=== PATIENT | female | born 1945 | race Caucasian/White ===

== ENCOUNTER 2017-03-23 16:36 | Outpatient (CLI) | payer OTHER ==
--- NOTE | 2017-03-24 11:13 | Ultrasound Report ---
RENAL ULTRASOUND: 03/23/2017 CLINICAL INDICATION: Chronic renal insufficiency. TECHNIQUE: Real-time scanning was performed with advertising account representative static images obtained. FINDINGS: The right kidney measures 11.4 x 8.3 x 5.3 cm, and the left kidney measures 10.7 x 7.2 x 5 .6 cm. Small cortical cysts are present. No solid renal mass, hydronephrosis, or perinephric collec tion is seen. Prevoid, the urinary bladder measures 8.1 x 5.6 x 5.4 cm, yielding a prevoid volume of 128 mL. Bilat eral ureteral jets are present. Postvoid residual is 5 mL. No focal bladder lesion is seen. IMPRESSION: SMALL CORTICAL CYSTS. NO HYDRONEPHROSIS. NO SIGNIFICANT POSTVOID RESIDUAL. JOB #: [id number] EXT JOB #:[id number]
== END 2017-03-23 16:37 | disposition home or self-care (01) ==
LOC: DI 16:36
PROVIDERS: ATTEND Physician Assistant Medical
DX: Q61.02 Congenital multiple renal cysts (principal)
CPT/HCPCS: 76770

== ENCOUNTER 2018-01-28 08:00 | Outpatient (CLI) | payer OTHER ==
[2018-01-28 13:51] LABS: CALCIUM 9.5 mg/dL (8.5-10.3); CREATININE 1.3 mg/dL (0.4-1.0)
[2018-01-28 14:21] LABS: HB2 TOTAL 13.9 g/dL; HEMOGLOBIN A1C 0.6 g/dL; HEMOGLOBIN A1C % 6.1 % (4.6-6.2)
== END 2018-01-28 08:01 | disposition home or self-care (01) ==
LOC: LAB.WCP 08:00
PROVIDERS: ATTEND Family Medicine
DX: E11.40 Type 2 diabetes mellitus with diabetic neuropathy, unspecified (principal)
CPT/HCPCS: 36415; 80048; 82043; 83036

== ENCOUNTER 2018-03-16 09:15 | Outpatient (CLI) | payer OTHER ==
--- NOTE | 2018-03-17 13:52 | Mammography Report ---
Procedure Date: 03/16/2018 Accession Number: [id number] / [id number] Procedure: MGN - Screening Mammo Dig Bilat CPT Code: FULL RESULT: EXAM: Screening Mammo Dig Bilat DATE: 03/16/2018 9:34 AM CLINICAL HISTORY: Routine screening TECHNIQUE: Bilateral CC and MLO views were obtained. COMPARISON: 04/14/2016, 04/05/2015, 03/20/2014, 6 x 13, 03/11/2012, 02/04/2010 FINDINGS: There are scattered fibroglandular densities. There is been no significant interval change. No suspicious masses, clustered microcalcifications, skin thickening or regions of architectural distortion are identified. IMPRESSION: Negative. RECOMMENDATION: Routine annual screening unless otherwise clinically indicated. BIRADS CATEGORY 1: Negative STANDARD QUALIFYING STATEMENTS: 1. This examination was reviewed with the aid of Computer-Aided Detection (CAD). 2. A negative or benign imaging report should not delay biopsy if clinically suspicious findings are present. Consider surgical consultation if warrented. More than 5% of cancers are not identified by imaging. 3. Dense breasts may obscure an underlying neoplasm.
== END 2018-03-16 09:16 | disposition home or self-care (01) ==
LOC: DI.N 09:15
PROVIDERS: ATTEND Family Medicine
DX: Z12.31 Encounter for screening mammogram for malignant neoplasm of breast (principal)
CPT/HCPCS: 77067

== ENCOUNTER 2018-07-14 09:25 | Outpatient (CLI) | payer OTHER ==
[2018-07-14 12:47] LABS: HB2 TOTAL 14.2 g/dL; HEMOGLOBIN A1C 0.56 g/dL; HEMOGLOBIN A1C % 5.8 % (4.6-6.2)
== END 2018-07-14 09:26 | disposition home or self-care (01) ==
LOC: LAB.WCP 09:25
PROVIDERS: ATTEND Family Medicine
DX: E11.40 Type 2 diabetes mellitus with diabetic neuropathy, unspecified (principal)
CPT/HCPCS: 36415; 82043; 83036

== ENCOUNTER 2018-10-13 08:00 | Outpatient (CLI) | payer OTHER ==
[2018-10-13 12:55] LABS: CALCIUM 9.7 mg/dL (8.5-10.3); CREATININE 1.4 mg/dL (0.4-1.0)
[2018-10-13 13:16] LABS: HB2 TOTAL 13.5 g/dL; HEMOGLOBIN A1C 0.51 g/dL; HEMOGLOBIN A1C % 5.6 % (4.6-6.2)
== END 2018-10-13 23:59 | disposition home or self-care (01) ==
LOC: LAB.WCP 08:00
PROVIDERS: ATTEND Family Medicine
DX: E11.40 Type 2 diabetes mellitus with diabetic neuropathy, unspecified (principal)
CPT/HCPCS: 36415; 80048; 82043; 83036

== ENCOUNTER 2018-12-08 10:21 | Outpatient (CLI) | payer OTHER ==
[2018-12-08 12:50] LABS: BASOPHILS % (AUTO) 0.5 %; EOSINOPHILS # (AUTO) 0.1 10^3/uL (0.0-0.7); HGB - HEMOGLOBIN 12.6 g/dL (12.0-16.0); LYMPHOCYTES # (AUTO) 0.7 10^3/uL (1.5-3.5); LYMPHOCYTES % (AUTO) 13.8 %; MEAN CORPUSCULAR HEMOGLOBIN 30.7 pg (27.0-31.0); MEAN CORPUSCULAR HGB CONC 34.4 g/dL (32.0-36.0); MEAN CORPUSCULAR VOLUME 89.5 fL (81.0-99.0); MEAN PLATELET VOLUME 8.8 fL (7.9-10.8); MONOCYTES # (AUTO) 0.5 10^3/uL (0.0-1.0); MONOCYTES % (AUTO) 9.6 %; NEUTROPHILS % (AUTO) 74.1 %; PLT - PLATELET COUNT 157 10^3/uL (130-450); RED BLOOD COUNT 4.09 10^6/uL (4.20-5.40); RED CELL DISTRIBUTION WIDTH 12.9 % (12.0-15.0); WHITE BLOOD COUNT 5.4 x10^3/uL (4.8-10.8)
[2018-12-08 13:29] LABS: ALBUMIN 4.1 g/dL (3.2-5.5); ALBUMIN/GLOBULIN RATIO 1.4 (1.0-2.2); BILIRUBIN,TOTAL 0.8 mg/dL (0.2-1.0); CALCIUM 9.1 mg/dL (8.5-10.3); CREATININE 1.4 mg/dL (0.4-1.0); TOTAL PROTEIN 7.1 g/dL (6.7-8.2)
== END 2018-12-08 23:59 | disposition home or self-care (01) ==
LOC: LAB.WCP 10:21
PROVIDERS: ATTEND Family Medicine
DX: N18.3 Chronic kidney disease, stage 3 (moderate) (principal)
CPT/HCPCS: 36415; 80053; 85025

== ENCOUNTER 2019-01-02 09:31 | Outpatient (CLI) | payer OTHER | END 2019-01-02 09:32 | disposition home or self-care (01) | LOC: NS 09:31 | PROVIDERS: ATTEND Family Medicine | DX: Z71.3 Dietary counseling and surveillance (principal); E11.22 Type 2 diabetes mellitus with diabetic chronic kidney disease; N18.9 Chronic kidney disease, unspecified | CPT/HCPCS: 97802 ==

== ENCOUNTER 2019-02-02 09:34 | Outpatient (CLI) | payer OTHER ==
[2019-02-02 13:24] LABS: HB2 TOTAL 13.1 g/dL; HEMOGLOBIN A1C 0.54 g/dL; HEMOGLOBIN A1C % 5.9 % (4.6-6.2)
== END 2019-02-02 09:35 | disposition home or self-care (01) ==
LOC: LAB.WCP 09:34
PROVIDERS: ATTEND Family Medicine
DX: E11.9 Type 2 diabetes mellitus without complications (principal)
CPT/HCPCS: 36415; 82607; 83036; 84100

== ENCOUNTER 2019-02-13 10:22 | Outpatient (CLI) | payer OTHER | END 2019-02-13 10:23 | disposition home or self-care (01) | LOC: NS 10:22 | PROVIDERS: ATTEND Family Medicine | DX: Z71.3 Dietary counseling and surveillance (principal); E11.22 Type 2 diabetes mellitus with diabetic chronic kidney disease; N18.3 Chronic kidney disease, stage 3 (moderate) | CPT/HCPCS: 97803 ==

== ENCOUNTER 2019-03-13 09:24 | Outpatient (CLI) | payer OTHER ==
--- NOTE | 2019-03-13 10:37 | XRAY Report ---
Reason: HAND PAIN,LEFT Procedure Date: 03/13/2019 Accession Number: [id number] / [id number] Procedure: WCP - Hand 2 View LT CPT Code: FULL RESULT: EXAM: LEFT HAND RADIOGRAPHY EXAM DATE: 03/13/2019 09:37 AM. CLINICAL HISTORY: Hand pain, left. COMPARISON: None. TECHNIQUE: 2 views. FINDINGS: Bones: Normal. No fractures or bone lesions. Joints: Minimal to mild degenerative changes at the first carpometacarpal articulation. There are 3 mm of ulnar negative variance. Soft Tissues: Normal. No soft tissue swelling. IMPRESSION: Ulnar negative variance. This can be associated with wrist pain. RADIA
== END 2019-03-13 09:25 | disposition home or self-care (01) ==
LOC: DI.WCP 09:24
PROVIDERS: ATTEND Family Medicine
DX: M79.642 Pain in left hand (principal)
CPT/HCPCS: 36415; 84550; 85027; 85651; 86038; 86140; 86200; 86430

== ENCOUNTER 2019-03-13 09:33 | Outpatient (CLI) | payer OTHER ==
[2019-03-13 15:49] LABS: URIC ACID 7.8 mg/dL (2.6-7.2)
[2019-03-13 15:54] LABS: HGB - HEMOGLOBIN 12.6 g/dL (12.0-16.0); MEAN CORPUSCULAR HEMOGLOBIN 30.5 pg (27.0-31.0); MEAN CORPUSCULAR HGB CONC 33.4 g/dL (32.0-36.0); MEAN CORPUSCULAR VOLUME 91.2 fL (81.0-99.0); MEAN PLATELET VOLUME 8.8 fL (7.9-10.8); RED BLOOD COUNT 4.13 10^6/uL (4.20-5.40); RED CELL DISTRIBUTION WIDTH 13.2 % (12.0-15.0); WHITE BLOOD COUNT 5.6 x10^3/uL (4.8-10.8)
[2019-03-13 18:02] LABS: CRP - C-REACTIVE PROTEIN < 1.0 mg/dL (0-1.0)
[2019-03-13 19:12] LABS: RHEUMATOID FACTOR NEGATIVE (Negative)
[2019-03-16 13:41] LABS: ANA SCREEN POSITIVE (NEGATIVE)
== END 2019-03-13 09:34 | disposition home or self-care (01) ==
LOC: LAB.WCP 09:33
PROVIDERS: ATTEND Family Medicine
DX: M79.642 Pain in left hand (principal)
CPT/HCPCS: 36415; 84550; 85027; 85651; 86038; 86140; 86200; 86430

== ENCOUNTER 2019-05-04 09:30 | Outpatient (CLI) | payer OTHER ==
[2019-05-04 12:24] LABS: CALCIUM 9.7 mg/dL (8.5-10.3); CREATININE 1.5 mg/dL (0.4-1.0)
[2019-05-04 12:36] LABS: HB2 TOTAL 12.9 g/dL; HEMOGLOBIN A1C 0.49 g/dL; HEMOGLOBIN A1C % 5.6 % (4.6-6.2)
[2019-05-04 13:08] LABS: CREATININE,URINE 26.9 mg/dL
[2019-05-04 13:12] LABS: MICROALBUMIN,URINE < 0.2 mg/dL (0-300.0)
== END 2019-05-04 23:59 | disposition home or self-care (01) ==
LOC: LAB.N 09:30
PROVIDERS: ATTEND Family Medicine
DX: E11.9 Type 2 diabetes mellitus without complications (principal)
CPT/HCPCS: 36415; 80048; 82043; 82570; 83036

== ENCOUNTER 2019-06-02 08:00 | Outpatient (CLI) | payer OTHER ==
[2019-06-02 19:10] LABS: ALBUMIN 4.5 g/dL (3.2-5.5); ALBUMIN/GLOBULIN RATIO 1.7 (1.0-2.2); BILIRUBIN,TOTAL 0.7 mg/dL (0.2-1.0); CALCIUM 9.6 mg/dL (8.5-10.3); CREATININE 1.3 mg/dL (0.4-1.0); TOTAL PROTEIN 7.1 g/dL (6.7-8.2); URIC ACID 7.6 mg/dL (2.6-7.2)
== END 2019-06-02 23:59 | disposition home or self-care (01) ==
LOC: LAB.N 08:00
PROVIDERS: ATTEND Family Medicine
DX: M10.9 Gout, unspecified (principal)
CPT/HCPCS: 36415; 80053; 84550

== ENCOUNTER 2019-08-17 11:20 | Outpatient (CLI) | payer OTHER ==
[2019-08-17 18:58] LABS: HB2 TOTAL 12.8 g/dL; HEMOGLOBIN A1C 0.47 g/dL; HEMOGLOBIN A1C % 5.5 % (4.6-6.2)
== END 2019-08-17 23:59 | disposition home or self-care (01) ==
LOC: LAB.N 11:20
PROVIDERS: ATTEND Family Medicine
DX: E11.9 Type 2 diabetes mellitus without complications (principal)
CPT/HCPCS: 36415; 83036

== ENCOUNTER 2022-03-16 09:10 | Outpatient (CLI) | payer OTHER ==
--- NOTE | 2022-03-16 11:24 | XRAY Report ---
PROCEDURE: Foot 3 View RT INDICATIONS: RIGHT FOOT SPRAIN TECHNIQUE: 3 views of the foot were acquired. COMPARISON: None FINDINGS: Bones: No fractures or dislocations. No suspicious bony lesions. Plantar calcaneal spur. Soft tissues: No tibiotalar joint effusion. Ossifications along the insertion of the Achilles tendon suggests remote trauma. IMPRESSION: Plantar calcaneal spur. Findings consistent with remote trauma at the insertion of the Achilles. No e vidence acute bony abnormality of the right foot. If clinical suspicion and/or symptoms persist, further assessment with repeat plain films or advanced imaging (e.g., CT, MRI, or bone scan) may be helpful for further assessment. Reviewed by: James Tirado MD on 03/16/2022 11:22 AM PDT Approved by: James Tirado MD on 03/16/2022 11:22 AM PDT Station ID: [id number]
== END 2022-03-16 09:11 | disposition home or self-care (01) ==
LOC: DI.N 09:10
PROVIDERS: ATTEND Internal Medicine
DX: S93.691A Other sprain of right foot, initial encounter (principal); M77.31 Calcaneal spur, right foot

== ENCOUNTER 2023-01-09 11:59 | Emergency (ER) | payer MEDICARE, OTHER ==
[2023-01-09 12:11] VITALS: BP 151/71
[2023-01-09] MEDS ORDERED: TETANUS/DIPHTHERIA/PERTUSSIS 0.5 ML SYRINGE IM ONE (12:24)
[2023-01-09] MEDS ORDERED: oxyCODONE 5 MG TABLET PO STA (12:24)
--- NOTE | 2023-01-09 12:26 | ED Physician Documentation ---
PD HPI LOWER EXT INJURY - Stated complaint Stated Complaint: GLF, RT LEG SWOLLEN - Chief complaint Chief Complaint: Trauma Ext - History obtained from History obtained from: Patient - Additional information Additional information: 77-year-old woman with unknown tetanus status was walking and slipped and hit her right leg on the edge of a concrete stair just prior to arrival and she has 2 scrapes there. She is able to walk and bear weight. No other injuries. Pain is moderate. 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 HEENT: Tonsil/Adenoidectomy - Present Medications Home Medications: Ambulatory Orders Medication Instructions Recorded Confirmed Aspirin [Aspir 81] 81 mg PO DAILY 07/12/14 03/09/16 Cinnamon Bark/Chromium Picolin 1 each PO BID 07/12/14 03/09/16 [Cinnamon Plus Chromium Capsule] Flaxseed Oil [Flaxseed] 1,400 mg PO DAILY 07/12/14 03/09/16 Glipizide [Glipizide Xl] 5 - 10 mg PO BIDWM 07/12/14 03/09/16 Glucosamine/MSM/Chondroitin A 1 each PO DAILY 07/12/14 03/09/16 [Uduzftntoug-Kdwijmkra-VIU Cplt] Lovastatin 40 mg PO QPM 07/12/14 03/09/16 Metformin HCl 850 mg PO TIDWM 07/12/14 03/09/16 Multivit-Min/FA/Lycopene/Lut 1 each PO DAILY 07/12/14 03/09/16 [Centrum Silver Tablet] lisinopriL [Lisinopril] 30 mg PO DAILY 07/12/14 03/09/16 Turmeric 1 tab PO DAILY 03/06/16 03/09/16 Ubidecarenone [Co Q-10] 75 mg PO DAILY 03/06/16 03/09/16 oxyCODONE [Roxicodone] 0.5 tab PO Q4-6H PRN #8 tablet 01/09/23 - Allergies Allergies/Adverse Reactions: Allergies Allergy/AdvReac Type Severity Reaction Status Date / Time clindamycin AdvReac Emesis Verified 07/12/14 09:11 codeine AdvReac Emesis Verified 07/12/14 09:11 onion [Onion] AdvReac Emesis Verified 07/12/14 09:11 Opioids - Morphine Analogues AdvReac Nausea Verified 01/09/23 12:11 rosiglitazone maleate * AdvReac Unknown Verified 03/09/16 06:53 [From Avandia] artificial sweeteners AdvReac Unknown Uncoded 03/09/16 06:53 - Social History Smoking Status: Never smoker PD ED PE NORMAL - Vitals Vital signs reviewed: Yes - General General: Alert and oriented X 3, No acute distress - Extremities Extremities: Other (There are 2 abrasions on the anterior right thomson with some underlying swelling. No pain out of proportion to exam. No pain with flexion or extension at the ankle. No knee or ankle tenderness.) - Neuro Neuro: Alert and oriented X 3, Normal speech - Psych Psych: Normal mood, Normal affect Results - Vitals Vitals: Vital Signs - 24 hr 01/09/23 12:07 Temperature 36.4 C L Heart Rate 77 Respiratory 16 Rate Blood Pressure 151/71 H O2 Saturation 100 Oxygen O2 Source Room air - Rads (name of study) Right tib-fib x-ray shows the swelling that is seen on exam but no fracture. Relevant Findings:: Final report received, EMP independent interpretation of test PD Medical Decision Making - ED course ED course: 77-year-old woman with right thomson abrasion and contusion with soft tissue hematoma. No evidence of compartment syndrome. X-ray negative. She walked well but did better with a walker here. Departure - Departure Disposition: 01 Home, Self Care Clinical Impression: Abrasion, right lower leg, initial encounter Contusion of right leg Qualifiers: Encounter type: initial encounter Qualified Code(s): S80.11XA - Contusion of right lower leg, initial encounter Condition: Good Record reviewed to determine appropriate education?: Yes Instructions: ED Abrasion Prescriptions: oxyCODONE [Roxicodone] 0.5 tab PO Q4-6H PRN #8 tablet PRN Reason: Pain Comments: I sent your prescription to to [facility] in [place]. Call your doctor to arrange a follow-up appointment, make the next available appointment. In the interim, return anytime if worse or if new symptoms develop. I am prescribing a short course of narcotic pain medication for you. These are potentially dangerous and addictive medications that should be used carefully. These medications may constipate you. Take an vbpe-rzl-brrctar stool softener (docusate) twice daily with plenty of water while taking these medications. If you go 24 hours without a bowel movement, take ejjw-sfw-ukeygei miralax, per package instructions. Do not drink or drive while taking these medications. If you received narcotic or sedating medications while in the emergency department, do not drive for 24 hours. Store this medication in a safe, secure place and out of reach of children. It is a violation of federal law to give or sell this medication to another person or to use in a manner other than prescribed. The ED will not refill narcotic prescriptions, including prescriptions lost or stolen. To dispose of unwanted medications: 1. [facility] at [address] in [place] has a medication drop box. They accept prescription medications (in pill form) Wednesday through Wednesday 9:00 a.m. to 5:00 p.m. 2. The [facility] accepts prescription medications (in pill form only) for disposal year round. Call for more information. 3. Contact the [facility] for the next [facility] sponsored prescription drug collection event. , [phone], or [phone]; Note that many narcotic pain relievers also contain Tylenol/acetaminophen. Please ensure that your total dose of acetaminophen from all sources does not exceed 3 g (3000 mg) per day. Discharge Date/Time: 01/09/23 13:36
--- NOTE | 2023-01-09 12:50 | XRAY Report ---
PROCEDURE: Tib/Fib RT INDICATIONS: leg inj TECHNIQUE: 2 views of the tibia and fibula were acquired. COMPARISON: Bilateral knee radiograph dated 04/07/2022 FINDINGS: Bones: No fractures or dislocations. No suspicious bony lesions. Soft tissues: Soft tissue swelling along anterior aspect of proximal tibial shaft is seen. No suspic ious soft tissue calcifications or masses. IMPRESSION: No acute right lower leg fracture or dislocation. Soft tissue swelling anterior to proximal tibial sh aft which may represent soft tissue hematoma. Reviewed by: Parish Taylor MD on 01/09/2023 12:48 PM PDT Approved by: Parish Taylor MD on 01/09/2023 12:48 PM PDT Station ID: [id number]
== END 2023-01-09 13:36 | disposition home or self-care (01) ==
LOC: ED 11:59
DX: S80.11XA Contusion of right lower leg, initial encounter (principal); W01.198A Fall on same level from slipping, tripping and stumbling with subsequent striking against other object, initial encounter; Y93.01 Activity, walking, marching and hiking; I10 Essential (primary) hypertension; E11.9 Type 2 diabetes mellitus without complications; Z79.84 Long term (current) use of oral hypoglycemic drugs; Z23 Encounter for immunization; Z71.85 Encounter for immunization safety counseling
CPT/HCPCS: 73590; 90471; 90715; 99283; 99284; A9270

== ENCOUNTER 2023-01-17 11:55 | Outpatient (CLI) | payer MEDICARE, OTHER | END 2023-01-17 11:56 | disposition critical access hospital (66) | LOC: EMS 11:55 | DX: M79.661 Pain in right lower leg (principal); M25.561 Pain in right knee; M25.461 Effusion, right knee; R53.1 Weakness | CPT/HCPCS: A0425; A0427 ==

== ENCOUNTER 2023-01-17 12:22 | Inpatient (IN) | payer MEDICARE, OTHER ==
--- NOTE | 2023-01-17 12:30 | ED Physician Documentation ---
PD HPI LOWER EXT INJURY - Stated complaint Stated Complaint: RT LEG PAIN - History obtained from History obtained from: Patient - Additional information Additional information: I saw her a week ago. She had slipped and hit her anterior thomson and had some scrapes there. She was recovering well until today. She was using her walker to get up on something and felt a crunch in the leg, probably the knee she thinks, and subsequently developed much more severe pain with in the knee and upper tib-fib and could not walk or bear weight. Last week she had an x-ray of the right tib-fib which was negative. 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 HEENT: Tonsil/Adenoidectomy - Present Medications Home Medications: Ambulatory Orders Medication Instructions Recorded Confirmed Aspirin [Aspir 81] 81 mg PO DAILY 07/12/14 03/09/16 Cinnamon Bark/Chromium Picolin 1 each PO BID 07/12/14 03/09/16 [Cinnamon Plus Chromium Capsule] Flaxseed Oil [Flaxseed] 1,400 mg PO DAILY 07/12/14 03/09/16 Glipizide [Glipizide Xl] 5 - 10 mg PO BIDWM 07/12/14 03/09/16 Glucosamine/MSM/Chondroitin A 1 each PO DAILY 07/12/14 03/09/16 [Fhfjellifcz-Yfcaszekq-CYI Cplt] Lovastatin 40 mg PO QPM 07/12/14 03/09/16 Metformin HCl 850 mg PO TIDWM 07/12/14 03/09/16 Multivit-Min/FA/Lycopene/Lut 1 each PO DAILY 07/12/14 03/09/16 [Centrum Silver Tablet] lisinopriL [Lisinopril] 30 mg PO DAILY 07/12/14 03/09/16 Turmeric 1 tab PO DAILY 03/06/16 03/09/16 Ubidecarenone [Co Q-10] 75 mg PO DAILY 03/06/16 03/09/16 oxyCODONE [Roxicodone] 0.5 tab PO Q4-6H PRN #8 tablet 01/09/23 - Allergies Allergies/Adverse Reactions: Allergies Allergy/AdvReac Type Severity Reaction Status Date / Time clindamycin AdvReac Emesis Verified 01/17/23 12:30 codeine AdvReac Emesis Verified 01/17/23 12:30 onion [Onion] AdvReac Emesis Verified 01/17/23 12:30 Opioids - Morphine Analogues AdvReac Nausea Verified 01/17/23 12:30 rosiglitazone maleate * AdvReac Unknown Verified 01/17/23 12:30 [From Avandia] artificial sweeteners AdvReac Unknown Uncoded 03/09/16 06:53 - Social History Smoking Status: Never smoker PD ED PE NORMAL - Vitals Vital signs reviewed: Yes - General General: Alert and oriented X 3, No acute distress - Neck Neck: Supple, no meningeal sign, No bony TTP - Extremities Extremities: Other (There is a large effusion of the right knee with tenderness of both sides of the right knee. She is also tender to the anterior thomson and mildly to the distal femur on the right. The right foot is swollen but nontender with good pulses.) - Neuro Neuro: Alert and oriented X 3, Normal speech - Psych Psych: Normal mood, Normal affect Results - Vitals Vitals: Vital Signs - 24 hr 01/17/23 01/17/23 12:30 12:43 Temperature 36.7 C Heart Rate 87 84 Respiratory 20 20 Rate Blood Pressure 96/64 155/78 H O2 Saturation 98 95 Oxygen O2 Source Room air - EKG (time done) 1338 EKG releavant findings:: EKG personally interpreted by author of this note. Relevant findings are: Rate: Rate (enter#) (72) Rhythm: NSR [place]: LAD QRS: Low voltage Ischemia: Normal ST segments - Labs Labs: Laboratory Tests 01/17/23 14:40 WBC 9.5 RBC 3.80 L Hgb 11.5 L Hct 33.8 L MCV 88.9 MCH 30.3 MCHC 34.0 RDW 11.9 L Plt Count 220 MPV 9.4 Neut # (Auto) 7.9 H Lymph # (Auto) 1.0 L Taliaferro # (Auto) 0.5 Eos # (Auto) 0.0 Baso # (Auto) 0.0 Absolute Nucleated RBC 0.00 Nucleated RBC % 0.0 PD Medical Decision Making - ED course ED course: 77-year-old woman had a fall last week, but no pain at the distal femur than, now severe pain with minimal mechanism today and has a distal femur fracture. Case discussed by phone with our orthopedic csm consultant, Dr Douglas who plans to do surgery tomorrow. She will be boarding in the emergency department as there are no hospital beds at the time. Departure - Departure Disposition: [address] [facility] DC/Xfer Clinical Impression: Femur fracture, right Qualifiers: Encounter type: initial encounter Femur location: distal epiphysis Fracture type: closed Fracture alignment: displaced Qualified Code(s): S72.441A - Displaced fracture of lower epiphysis (separation) of right femur, initial encounter for closed fracture Condition: Serious
[2023-01-17] MEDS ORDERED: KETOROLAC 15 MG/ML VIAL IVP STA (12:34)
[2023-01-17] MEDS ORDERED: HYDROmorphone 1 MG/ML CARPUJECT IVP STA ×2 (12:34→13:00)
--- NOTE | 2023-01-17 13:37 | XRAY Report ---
PROCEDURE: Femur 2V RT INDICATIONS: leg inj TECHNIQUE: 2 views of the femur were acquired. COMPARISON: None. FINDINGS: Bones: Transverse comminuted fracture through the distal femoral diaphysis with lateral angulation o f distal fracture fragment. Generalized decreased osseous mineralization present Soft tissues: No suspicious soft tissue calcifications or masses. IMPRESSION: Transverse angulated comminuted distal femoral fracture Osteopenia Reviewed by: Jayesh Schaefer MD on 01/17/2023 12:36 PM AKDT Approved by: Jayesh Schaefer MD on 01/17/2023 12:36 PM AKDT Station ID: [id number]
--- NOTE | 2023-01-17 13:38 | XRAY Report ---
PROCEDURE: Knee 2 View RT INDICATIONS: Right leg injury TECHNIQUE: 2 views of the right knee(s) were acquired. COMPARISON: None. FINDINGS: Bones: Transverse/oblique fracture through the distal femoral diaphysis noted with dorsal displaceme nt of the distal fracture fragment as well as lateral angulation. No significant joint effusion curre ntly. Generalized decreased osseous mineralization Soft tissues: Associated soft tissue edema. No radiopaque foreign body IMPRESSION: Displaced, angulated and comminuted distal femoral fracture Reviewed by: Jayesh Schaefer MD on 01/17/2023 12:37 PM AKDT Approved by: Jayesh Schaefer MD on 01/17/2023 12:37 PM AKDT Station ID: [id number]
--- NOTE | 2023-01-17 13:39 | XRAY Report ---
PROCEDURE: Tib/Fib RT INDICATIONS: Right leg injury TECHNIQUE: 2 views of the tibia and fibula were acquired. COMPARISON: None. FINDINGS: Bones: No fractures or dislocations. No suspicious bony lesions. Osteopenia Soft tissues: No suspicious soft tissue calcifications or masses. IMPRESSION: Osteopenia without fracture in the tibia fibula. Reviewed by: Jayesh Schaefer MD on 01/17/2023 12:38 PM STEVEN Approved by: Jayesh Schaefer MD on 01/17/2023 12:38 PM AKJAROD Station ID: [id number]
[2023-01-17 14:47] LABS: BASOPHILS % (AUTO) 0.3 %; EOSINOPHILS % (AUTO) 0.4 %; HCT - HEMATOCRIT 33.8 % (37.0-47.0); HGB - HEMOGLOBIN 11.5 g/dL (12.0-16.0); LYMPHOCYTES % (AUTO) 10.1 %; MEAN CORPUSCULAR HEMOGLOBIN 30.3 pg (27.0-31.0); MEAN CORPUSCULAR VOLUME 88.9 fL (81.0-99.0); MEAN PLATELET VOLUME 9.4 fL (7.9-10.8); MONOCYTES # (AUTO) 0.5 10^3/uL (0.0-1.0); MONOCYTES % (AUTO) 5.3 %; NEUTROPHILS # (AUTO) 7.9 10^3/uL (1.5-6.6); NEUTROPHILS % (AUTO) 83.7 %; PLT - PLATELET COUNT 220 10^3/uL (130-450); RED CELL DISTRIBUTION WIDTH 11.9 % (12.0-15.0); WHITE BLOOD COUNT 9.5 x10^3/uL (4.8-10.8)
[2023-01-17 14:56] LABS: CALCIUM 8.9 mg/dL (8.5-10.3); CREATININE 1.1 mg/dL (0.4-1.0)
[2023-01-17 14:58] LABS: INR 1.1 (0.8-1.2); PT - PROTHROMBIN TIME 12.4 secs (9.9-12.6)
[2023-01-17] MEDS: HYDROmorphone 1 MG/ML CARPUJECT IVP PRN (15:05)
--- NOTE | 2023-01-17 15:08 | HISTORY & PHYSICAL EXAMINATION ---
HPI - History Obtained From History obtained from: Patient, Family Exam limitations: Clinical condition - History of Present Illness HPI Comment/Other: This is a 77-year-old woman who presents herself to the emergency room trying to go up a step at home, felt a crunch in her right thigh, fell and was unable to bear weight on right leg. She had a fall about 8 days ago, also at home, coming down some steps in her solarium, fell onto her thomson with abrasion and contusion. She had x-rays of the lower leg in the emergency room which did not show a fracture to the tibia or fibula. She has some abrasions that are clean. After the first fall 8 days ago she was able to get up and walk and did not have any kind of pain that she is now. She normally ambulates. She has no history of previous problems with her right leg. She has no previous history of fractures. Her general health has been relatively good. She does have a history of obesity, diet-controlled diabetes, hypertension and chronic kidney disease. She is a community ambulator, lives with her . Both have lived together at least since about 1974 in [place]. She denies chest pain, shortness of breath, dizziness, syncope or loss of consciousness associated with her fall. 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 HEENT: positive: Tonsil/Adenoidectomy Social & Family Hx - Social History Does the pt smoke?: No Smoking Status: Never smoker Does the pt drink ETOH?: No Does the pt have substance abuse?: No Meds/Allgy - Home Medications Home Medications: Ambulatory Orders Medication Instructions Recorded Confirmed Aspirin [Aspir 81] 81 mg PO DAILY 07/12/14 03/09/16 Cinnamon Bark/Chromium Picolin 1 each PO BID 07/12/14 03/09/16 [Cinnamon Plus Chromium Capsule] Flaxseed Oil [Flaxseed] 1,400 mg PO DAILY 07/12/14 03/09/16 Glipizide [Glipizide Xl] 5 - 10 mg PO BIDWM 07/12/14 03/09/16 Glucosamine/MSM/Chondroitin A 1 each PO DAILY 07/12/14 03/09/16 [Goiswzhwzbs-Fcgyoklri-EEF Cplt] Lovastatin 40 mg PO QPM 07/12/14 03/09/16 Metformin HCl 850 mg PO TIDWM 07/12/14 03/09/16 Multivit-Min/FA/Lycopene/Lut 1 each PO DAILY 07/12/14 03/09/16 [Centrum Silver Tablet] lisinopriL [Lisinopril] 30 mg PO DAILY 07/12/14 03/09/16 Turmeric 1 tab PO DAILY 03/06/16 03/09/16 Ubidecarenone [Co Q-10] 75 mg PO DAILY 03/06/16 03/09/16 oxyCODONE [Roxicodone] 0.5 tab PO Q4-6H PRN #8 tablet 01/09/23 - Allergies Allergies/Adverse Reactions: Allergies Allergy/AdvReac Type Severity Reaction Status Date / Time clindamycin AdvReac Emesis Verified 01/17/23 12:30 codeine AdvReac Emesis Verified 01/17/23 12:30 onion [Onion] AdvReac Emesis Verified 01/17/23 12:30 Opioids - Morphine Analogues AdvReac Nausea Verified 01/17/23 12:30 rosiglitazone maleate * AdvReac Unknown Verified 01/17/23 12:30 [From Avandia] artificial sweeteners AdvReac Unknown Uncoded 03/09/16 06:53 Exam - Vital Signs Vital Signs: Vital Signs x48h Temp Pulse Resp BP Pulse Ox 01/17/23 14:54 95 20 157/106 H 99 01/17/23 12:43 84 20 155/78 H 95 01/17/23 12:30 36.7 C 87 20 96/64 98 - Physical Exam General Appearance: positive: Alert, Mild distress Respiratory: positive: Chest non-tender Cardiovascular: positive: Regular rate & rhythm Peripheral Pulses: positive: 2+ Abdomen: positive: Non-tender Neurologic/Psychiatric: positive: Oriented x3, Motor nml, Sensation nml, Mood/affect nml Comments/Other: She is alert, fully oriented. She can move upper extremities well without pain, same is true for her left leg. Any movement of right leg is painful with the pain being localized to the right distal thigh. There is at least 3 abrasions over the anterior tibia and 1 over the knee measuring about 5 mm. The abrasions are superficial and clean. There is shortening of the right leg. The right kn ee is held in some flexion. Neurovascular is intact to right leg. There is no sign of compartment syndrome. There is no sign of hematoma to the right thigh. Results - Lab Results Fish Bones: 01/17/23 14:40 01/17/23 14:40 Other Lab Results: Lab Results x24hrs 01/17/23 01/17/23 01/17/23 Range/Units 14:40 14:40 14:40 WBC 9.5 (4.8-10.8) x10^3/uL RBC 3.80 L (4.20-5.40) 10^6/uL Hgb 11.5 L (12.0-16.0) g/dL Hct 33.8 L (37.0-47.0) % MCV 88.9 (81.0-99.0) fL MCH 30.3 (27.0-31.0) pg MCHC 34.0 (32.0-36.0) g/dL RDW 11.9 L (12.0-15.0) % Plt Count 220 (130-450) 10^3/uL MPV 9.4 (7.9-10.8) fL Neut # (Auto) 7.9 H (1.5-6.6) 10^3/uL Lymph # (Auto) 1.0 L (1.5-3.5) 10^3/uL Placer # (Auto) 0.5 (0.0-1.0) 10^3/uL Eos # (Auto) 0.0 (0.0-0.7) 10^3/uL Baso # (Auto) 0.0 (0.0-0.1) 10^3/uL Absolute Nucleated RBC 0.00 x10^3/uL Nucleated RBC % 0.0 /100WBC PT 12.4 (9.9-12.6) secs INR 1.1 (0.8-1.2) Sodium 137 (135-145) mmol/L Potassium 4.0 (3.5-5.0) mmol/L Chloride 102 (101-111) mmol/L Carbon Dioxide 24 (21-32) mmol/L Anion Gap 11.0 (6-13) BUN 26 H (6-20) mg/dL Creatinine 1.1 H (0.4-1.0) mg/dL Estimated GFR (MDRD) 48 L (>89) Glucose 161 H (70-100) mg/dL Calcium 8.9 (8.5-10.3) mg/dL - Diagnostic Imaging Results Diagnostic Imaging Results: positive: Read independently (There is osteopenia present to right femur. There is a supracondylar displaced fracture of the right distal femur with some comminution. The fracture appears to be extra- articular.) Impression/Plan - Problem List Problem List: Impression: 1. Closed, displaced right distal femur fracture 2. Multiple medical problems including obesity, diet-controlled diabetes mellitus, hypertension, chronic kidney disease Plan: She will need hospital admission, evaluation by hospitalist and emergency room tj biswas. I would recommend open reduction internal fixation right distal femur tomorrow. She will need to have intramedullary rodding or perhaps plating of the femur. I tend to prefer intramedullary rodding for her.I would like to obtain a CT scan of the fracture prior to surgery. She will be hydrated and medicated to help reduce pain prior to surgery. The risk, goals and likelihood of achieving goals, alternatives to surgery and consequences, disability and rarely were discussed. The general risk include adverse reaction to medication or anesthesia, myocardial infarction, stroke, pulmonary embolism, kidney failure, bleeding and infection. The specific complications include malunion, nonunion, failure of fixation and need for revision surgery, injury to adjacent structures such as nerve or arteryThe patient has signed informed consent, agreeing to the surgery
[2023-01-17] MEDS ORDERED: ONDANSETRON 4 MG/2 ML VIAL IVP PRN (15:59)
--- NOTE | 2023-01-17 16:19 | CT Report ---
PROCEDURE: LOWER EXTREMITY WO - RT INDICATIONS: Surgical Planning for Femur Fracture TECHNIQUE: Noncontrast 3-mm axial sections acquired from the distal tibial shaft to the talar dome, with coronal and sagittal reformats. For radiation dose reduction, the following was used: automated exposure c ontrol, adjustment of mA and/or kV according to patient size. COMPARISON: None. FINDINGS: Image quality: Excellent. Bones: Normal bone mineralization present. There is an oblique fracture through the distal femoral d iaphysis with anterior displacement of the distal fracture fragment by one half bone diameter. No int ra-articular involvement. Patellofemoral joint space narrowing present. A relatively small joint effusion Soft tissues: Associated generalized soft tissue edema Impression: Displaced oblique distal femoral metaphyseal fracture Reviewed by: Jayesh Schaefer MD on 01/17/2023 3:17 PM AKDT Approved by: Jayesh Schaefer MD on 01/17/2023 3:17 PM AKDT Station ID: [id number]
[2023-01-17] MEDS ORDERED: diphenhydrAMINE 25 MG CAPSULE PO STA (18:42)
[2023-01-17] MEDS ORDERED: amLODIPine 5 MG TABLET PO STA (18:43)
[2023-01-17] MEDS ORDERED: diphenhydrAMINE 25 MG CAPSULE PO ONE (19:30)
[2023-01-18] MEDS: DEXTROSE 5%-LACTATED RINGERS 1,000 ML IV SCH ×2 (00:15→08:17)
[2023-01-18] MEDS: HYDROmorphone 1 MG/ML CARPUJECT IVP PRN ×3 (01:00→07:49)
[2023-01-18 08:33] LABS: BASOPHILS % (AUTO) 0.3 %; EOSINOPHILS # (AUTO) 0.1 10^3/uL (0.0-0.7); EOSINOPHILS % (AUTO) 1.1 %; HCT - HEMATOCRIT 32.8 % (37.0-47.0); HGB - HEMOGLOBIN 10.9 g/dL (12.0-16.0); LYMPHOCYTES # (AUTO) 1.3 10^3/uL (1.5-3.5); LYMPHOCYTES % (AUTO) 17.4 %; MEAN CORPUSCULAR HEMOGLOBIN 30.5 pg (27.0-31.0); MEAN CORPUSCULAR HGB CONC 33.2 g/dL (32.0-36.0); MEAN CORPUSCULAR VOLUME 91.9 fL (81.0-99.0); MEAN PLATELET VOLUME 9.8 fL (7.9-10.8); MONOCYTES # (AUTO) 0.8 10^3/uL (0.0-1.0); MONOCYTES % (AUTO) 10.4 %; NEUTROPHILS # (AUTO) 5.1 10^3/uL (1.5-6.6); NEUTROPHILS % (AUTO) 70.7 %; PLT - PLATELET COUNT 197 10^3/uL (130-450); RED BLOOD COUNT 3.57 10^6/uL (4.20-5.40); RED CELL DISTRIBUTION WIDTH 11.9 % (12.0-15.0); WHITE BLOOD COUNT 7.2 x10^3/uL (4.8-10.8)
[2023-01-18 08:45] LABS: ALBUMIN 3.7 g/dL (3.2-5.5); ALBUMIN/GLOBULIN RATIO 1.3 (1.0-2.2); BILIRUBIN,TOTAL 0.6 mg/dL (0.2-1.0); CALCIUM 8.9 mg/dL (8.5-10.3); CREATININE 1.1 mg/dL (0.4-1.0); POTASSIUM 4.4 mmol/L (3.5-5.0); TOTAL PROTEIN 6.5 g/dL (6.7-8.2)
[2023-01-18] MEDS: SODIUM CHLORIDE FLUSH 0.9% 10 ML SYRINGE IVP SCH ×2 (09:16→17:37)
[2023-01-18] MEDS: ACETAMINOPHEN 325 MG TABLET PO SCH ×2 (09:16→12:24)
[2023-01-18] MEDS ORDERED: BACITRACIN ZINC OINT 1 PACKET TOP ONE (09:50)
[2023-01-18] MEDS ORDERED: BUPIVACAINE 0.5%-EPI 1:200000 PF 30 ML VIAL ONE (09:51)
[2023-01-18] MEDS ORDERED: LIDOCAINE MPF 2%-EPI 1:200000 20 ML VIAL ONE (09:51)
[2023-01-18] MEDS ORDERED: BUPIVACAINE 0.25% PF 10 ML VIAL ONE (09:51)
[2023-01-18] MEDS ORDERED: ONDANSETRON 4 MG/2 ML VIAL IVP STA (10:15)
[2023-01-18] MEDS ORDERED: HYDROmorphone 1 MG/ML CARPUJECT IVP STA (10:15)
--- NOTE | 2023-01-18 10:16 | ED Physician Documentation ---
ED Addendum - Addendum Addendum: 01/18/23 10:16 The patient is getting ready to go to the OR. She does complain of some nausea and pain. We can dose her just prior to going over.
--- NOTE | 2023-01-18 10:36 | ANESTHESIA ---
Pre-Anesthesia VS, & Labs - Diagnosis R distal femur fx - Procedure ORIF R distal femur Vital Signs: Temp Pulse Resp BP Pulse Ox O2 Flow Rate 36.7 C 73 20 115/54 L 97 2 01/18/23 06:59 01/18/23 10:01 01/18/23 10:01 01/18/23 10:01 01/18/23 10:01 01/18/23 08:05 Height: 5 ft 4 in Weight (kg): 81.647 kg Body Mass Index: 30.9 BMI Classification: Obese - NPO >8 hours - Is Patient ?: No - Lab Results Current Lab Results: Laboratory Tests 01/18/23 08:31: Sodium 138, Potassium 4.4, Chloride 102, Carbon Dioxide 28, Anion Gap 8.0, BUN 23 H, Creatinine 1.1 H, Estimated GFR (MDRD) 48 L, Glucose 179 H, Calcium 8.9, Total Bilirubin 0.6, AST 17, ALT 14, Alkaline Phosphatase 41 L, Total Protein 6.5 L, Albumin 3.7, Globulin 2.8, Albumin/Globulin Ratio 1.3 01/18/23 08:31: WBC 7.2, RBC 3.57 L, Hgb 10.9 L, Hct 32.8 L, MCV 91.9, MCH 30.5, MCHC 33.2, RDW 11.9 L, Plt Count 197, MPV 9.8, Neut # (Auto) 5.1, Lymph # (Auto) 1.3 L, Frio # (Auto) 0.8, Eos # (Auto) 0.1, Baso # (Auto) 0.0, Absolute Nucleated RBC 0.00, Nucleated RBC % 0.0 01/17/23 14:40: Sodium 137, Potassium 4.0, Chloride 102, Carbon Dioxide 24, Anion Gap 11.0, BUN 26 H, Creatinine 1.1 H, Estimated GFR (MDRD) 48 L, Glucose 161 H, Calcium 8.9 01/17/23 14:40: PT 12.4, INR 1.1 01/17/23 14:40: WBC 9.5, RBC 3.80 L, Hgb 11.5 L, Hct 33.8 L, MCV 88.9, MCH 30.3, MCHC 34.0, RDW 11.9 L, Plt Count 220, MPV 9.4, Neut # (Auto) 7.9 H, Lymph # (Auto) 1.0 L, Frio # (Auto) 0.5, Eos # (Auto) 0.0, Baso # (Auto) 0.0, Absolute Nucleated RBC 0.00, Nucleated RBC % 0.0 Lab results reviewed: Yes Fish Bones: 01/18/23 08:31 01/18/23 08:31 Home Medications and Allergies Home Medications: Ambulatory Orders Acetaminophen/Diphenhydramine [Pain Relief Pm 25-500 mg Cplt] 2 each PO QPM 01/17/23 Irbesartan [Avapro] 37.5 mg ORAL DAILY 01/17/23 Pregabalin [Lyrica] 150 mg PO DAILY 01/17/23 amLODIPine [Norvasc] 5 mg PO DAILY 01/17/23 Active Medications Acetaminophen (Acetaminophen 325 Mg Tablet) 650 mg PO Q4HR [facility] Last Admin: 01/18/23 09:16 Dose: Not Given Hydromorphone HCl (Hydromorphone 0.5 Mg/0.5 Ml Syringe) 0.5 mg IVP Q2H PRN PRN Reason: Pain 8 to 10 Dextrose/Lactated Ringer's (D5lr) 1,000 mls @ 125 mls/hr IV .Q8H [facility] Last Admin: 01/18/23 08:17 Dose: 125 mls/hr Ondansetron HCl (Ondansetron 4 Mg/2 Ml Vial) 4 mg IVP Q6H PRN PRN Reason: Nausea / Vomiting Last Admin: 01/17/23 16:02 Dose: 4 mg Sodium Chloride (Sodium Chloride Flush 0.9% 10 Ml Syringe) 10 ml IVP PRN PRN PRN Reason: NEEDED PER PROVIDER ORDERS Sodium Chloride (Sodium Chloride Flush 0.9% 10 Ml Syringe) 10 ml IVP 0100,0900,1700 [facility] Last Admin: 01/18/23 09:16 Dose: Not Given Aspirin [Aspir 81] 81 mg PO DAILY 07/12/14 Cinnamon Bark/Chromium Picolin [Cinnamon Plus Chromium Capsule] 1 each PO BID 07/12/14 Flaxseed Oil [Flaxseed] 1,400 mg PO DAILY 07/12/14 Glucosamine/MSM/Chondroitin A [Ojwtkdgymnw-Zicqndfiy-EGL Cplt] 1 each PO DAILY 07/12/14 Lovastatin 40 mg PO QPM 07/12/14 Multivit-Min/FA/Lycopene/Lut [Centrum Silver Tablet] 1 each PO DAILY 07/12/14 Turmeric 1 tab PO DAILY 03/06/16 Ubidecarenone [Co Q-10] 75 mg PO DAILY 03/06/16 Acetaminophen/Diphenhydramine [Pain Relief Pm 25-500 mg Cplt] 2 each PO QPM 01/17/23 Irbesartan [Avapro] 37.5 mg ORAL DAILY 01/17/23 Pregabalin [Lyrica] 150 mg PO DAILY 01/17/23 amLODIPine [Norvasc] 5 mg PO DAILY 01/17/23 Allergies/Adverse Reactions: Allergies Allergy/AdvReac Type Severity Reaction Status Date / Time clindamycin AdvReac Emesis Verified 01/17/23 12:30 codeine AdvReac Emesis Verified 01/17/23 12:30 onion [Onion] AdvReac Emesis Verified 01/17/23 12:30 Opioids - Morphine Analogues AdvReac Nausea Verified 01/17/23 12:30 rosiglitazone maleate * AdvReac Unknown Verified 01/17/23 12:30 [From Avandia] artificial sweeteners AdvReac Unknown Uncoded 03/09/16 06:53 Anes History & Medical History - Anesthetic History Anesthesia Complications: reports: No previous complications, Post-Operative Nausea/Vomiting (with ) Family history of Anesthesia Complications: Denies Family history of Malignant Hyperthermia: Denies - Medical History Cardiovascular: reports: Hypertension, High cholesterol Pulmonary: reports: Other Gastrointestinal: reports: Colon polyps, Other Urinary: reports: None Musculoskeletal: reports: Osteoarthritis, Other Endocrine/Autoimmune: reports: Type 2 diabetes Skin: Smoking Status: Never smoker Psychosocial: reports: No issues indicated History of Cancer?: No - Surgical History General: reports: Colonoscopy Eyes Ears Nose Throat (EENT): reports: Tonsil/Adenoidectomy Gynecologic: reports: section Exam General: Alert, Oriented x3, Cooperative Dental: WNL Mouth Openin Fingerbreadth Neck Mobility: Normal Mallampati classification: II Thyromental Distance: 4-6 cm Respiratory: Lungs clear, Normal breath sounds, No respiratory distress Cardiovascular: Regular rate Neurological: Normal speech Mental/Cognitive Status: Alert/Oriented X3, Normal for patient Cognitive Status: Within normal limits Plan Anesthesia Type: General, Spinal Consent for Procedure(s) Verified and Reviewed: Yes Code Status: Attempt Resuscitation ASA classification: 2-Mild systemic disease Is this case an emergency?: Yes
[2023-01-18] MEDS ORDERED: fentaNYL 100 MCG/2 ML VIAL ONE (10:51)
[2023-01-18] MEDS ORDERED: MIDAZOLAM 2 MG/2 ML VIAL ONE (10:51)
[2023-01-18] MEDS ORDERED: PROPOFOL 200 MG/20 ML VIAL IVP ONE (10:51)
[2023-01-18] MEDS ORDERED: LIDOCAINE-PF 2% 10 ML AMP SUBQ ONE (10:51)
[2023-01-18] MEDS ORDERED: BUPIVACAINE 0.5% PF 10 ML VIAL ONE (10:54)
--- NOTE | 2023-01-18 11:47 | CONSULTATION NOTE ---
Referring Provider Name of Referring Provider:: Dr. Douglas Consult Date: 01/18/23 <Elidia Montes - Last Filed: 01/18/23 17:58> Chief Complaint - Chief Complaint Chief Complaint: Right leg pain <Elidia Montes - Last Filed: 01/18/23 17:58> History of Present Illness - Admitted From Admitted From:: ED - History Obtained From History obtained from: ED Provider and Orthopedic Provider <Elidia Montes - Last Filed: 01/18/23 17:58> <Lena Trejo - Last Filed: 01/18/23 18:02> - History of Present Illness HPI Comment/Other: This is a 77 yo female who presented to the ED after falling in her home and being unable to bear weight on her right leg. X-ray of her right leg revealed a "closed, displaced right distal femur fracture." Her right femur also showed osteopenia. Dr. Douglas took her for on ORIF procedure this afternoon. This patient has a past medical history of obesity, Type 2 diabetes, hypertension, chronic kidney disease, hypercholesteremia, osteoarthritis, peripheral neuropathy, colon polyps, and anxiety. She has never been a smoker, does not drink alcohol, and has no history of substance abuse. Past surgical history includes a section and tonsil/adenoidectomy. She has allergies to clindamycin, codeine, morphine analogs, rosiglitazone maleate, onions, and artificial sweeteners. She has no previous history of fractures, and she normally ambulates around her home unencumbered. She is a community ambulator, and has lived in [place] with her since 1974. We are seeing the patient post-op, and she appears in mild distress from nausea/vomiting as well as pain to her surgery site. (Elidia Montes) Attestation: I attest that the patient was seen, examined by me with a separate encounter after being seen by the and PA student. I reviewed the student's documentation including patient history, physical examination, laboratory, imaging, clinical assessment, and treatment plan. I have discussed the management of the patient with the student, with the patient, and there are no changes. (Lena Trejo) History - Past Medical History Cardiovascular: reports: Hypertension, High cholesterol Respiratory: reports: Other Neuro: reports: Peripheral neuropathy Endocrine/Autoimmune: reports: Type 2 diabetes GI: reports: Colon polyps, Other : reports: Other HEENT: reports: None Psych: reports: Anxiety Musculoskeletal: reports: Osteoarthritis, Other Derm: reports: Other MRSA Hx?: No Other Past Medical History: Stage 3 Kidney Disease. Skin Cancer. - Past Surgical History General: reports: Colonoscopy /[employer]: reports: section HEENT: reports: Cataracts, Tonsil/Adenoidectomy Derm: reports: Other - Family & Social History Living arrangement: At home Living Situation: With spouse/s.o. Social History Notes: Never smoker <Elidia Montes - Last Filed: 01/18/23 17:58> Meds/Allgy <lEidia Montes - Last Filed: 01/18/23 17:58> <Lena Trejo - Last Filed: 01/18/23 18:02> - Home Medications Home Medications: Ambulatory Orders Medication Instructions Recorded Confirmed Aspirin [Aspir 81] 81 mg PO DAILY 07/12/14 01/17/23 Cinnamon Bark/Chromium Picolin 1 each PO BID 07/12/14 01/17/23 [Cinnamon Plus Chromium Capsule] Flaxseed Oil [Flaxseed] 1,400 mg PO DAILY 07/12/14 01/17/23 Glucosamine/MSM/Chondroitin A 1 each PO DAILY 07/12/14 01/17/23 [Idxnfwezyuo-Jmomudbsh-IFH Cplt] Lovastatin 40 mg PO QPM 07/12/14 01/17/23 Multivit-Min/FA/Lycopene/Lut 1 each PO DAILY 07/12/14 01/17/23 [Centrum Silver Tablet] Turmeric 1 tab PO DAILY 03/06/16 01/17/23 Ubidecarenone [Co Q-10] 75 mg PO DAILY 03/06/16 01/17/23 Acetaminophen/Diphenhydramine 2 each PO QPM 01/17/23 01/17/23 [Pain Relief Pm 25-500 mg Cplt] Irbesartan [Avapro] 37.5 mg ORAL DAILY 01/17/23 01/17/23 Pregabalin [Lyrica] 150 mg PO DAILY 01/17/23 01/17/23 amLODIPine [Norvasc] 5 mg PO DAILY 01/17/23 01/17/23 - Allergies Allergies/Adverse Reactions: Allergies Allergy/AdvReac Type Severity Reaction Status Date / Time clindamycin AdvReac Emesis Verified 01/17/23 12:30 codeine AdvReac Emesis Verified 01/17/23 12:30 onion [Onion] AdvReac Emesis Verified 01/17/23 12:30 Opioids - Morphine Analogues AdvReac Nausea Verified 01/17/23 12:30 rosiglitazone maleate * AdvReac Unknown Verified 01/17/23 12:30 [From Avandia] artificial sweeteners AdvReac Unknown Uncoded 03/09/16 06:53 Review of Systems - All Other Systems All Other Systems: reports: Other (Only as in HPI because patient is unable to answer detailed questions due to her nausea/vomiting.) <Elidia Montes - Last Filed: 01/18/23 17:58> Exam - Physical Exam General Appearance: positive: Mild distress (In pain and nauseated after surgery) Eyes Bilateral: positive: Normal inspection ENT: positive: ENT inspection nml Neck: positive: Nml inspection, Trachea midline Respiratory: positive: Breath sounds nml, Other (Tachypneic because she's in pain) Cardiovascular: positive: Regular rate & rhythm, Systolic murmur Peripheral Pulses: positive: 2+ Abdomen: positive: Nml bowel sounds Skin: positive: Color nml, Dry Extremities: positive: Other (Surgery to right leg. Unable to move fully post-op due to pain.) Neurologic/Psychiatric: positive: Oriented x3, Other (Hard for her to answer questions because she is in pain and nauseous/vomiting.) <Elidia Montes - Last Filed: 01/18/23 17:58> - Vital Signs Vital Signs: Vital Signs x48h Temp Pulse Pulse Pulse Resp BP BP 01/18/23 17:31 36.9 C 95 18 142/58 H 01/18/23 17:26 01/18/23 17:00 36.6 C 91 20 144/51 H 01/18/23 16:52 36.5 C 90 16 126/57 L 01/18/23 16:44 37.0 C 92 15 113/53 L 01/18/23 16:38 91 14 122/49 L 01/18/23 16:33 36.9 C 91 18 121/53 L 01/18/23 16:25 92 16 122/81 H 01/18/23 16:20 36.4 C L 83 19 131/56 H 01/18/23 16:15 36.6 C 84 14 130/58 L 01/18/23 16:07 36.4 C L 74 24 129/79 01/18/23 10:44 01/18/23 10:36 36.5 C 70 16 127/50 L Pulse Ox O2 Flow Rate 01/18/23 17:31 100 3 01/18/23 17:26 3 01/18/23 17:00 93 3 01/18/23 16:52 93 01/18/23 16:44 93 01/18/23 16:38 94 01/18/23 16:33 92 01/18/23 16:25 93 01/18/23 16:20 91 L 01/18/23 16:15 91 L 01/18/23 16:07 90 L 01/18/23 10:44 2 01/18/23 10:36 100 2 Conclusion/Plan - Problem List (1) Femur fracture, right Conclusion/Plan: Patient just arrived out of the OR. We recommend calcium and vitamin D supplements, as well as PT/OT protocol for post-op ortho patients. Pain management per ortho. (2) Diabetes mellitus In the pre-op note, patient states that she has diet-controlled Type 2 diabetes. On her home medication list, she takes glipizide and metformin. During her inpatient stay, she will not be getting these oral medications, but instead will be ordered a diabetic diet and sliding scale insulin. (3) Hypertension According to her home medication list, she normally takes aspirin and lisinopril daily. We recommend that she is restarted on this post-op if her BP is stable. (4) Hypercholesterolemia Patient takes lovastatin at home, and we also recommend that this be resumed post-op. (5) Chronic kidney disease Patient's last BUN was 26 and last creatinine drawn was 1.1. We recommend strict I&Os after her procedure to monitor for any changes in her urine output. Avoid nephrotoxic agents. (6) Osteoarthritis We recommend resuming her joint supplements (Glucosamine/MSM/Chondroitin A) and her home dose of oxycodone PRN for pain management. (7) Alopecia Recommend checking thyroid level on her to assess for hypothyroidism. Qualifiers: Encounter type: initial encounter Femur location: distal epiphysis Fracture type: closed Fracture alignment: displaced Qualified Code(s): S72.441A - Displaced fracture of lower epiphysis (separation) of right femur, initial encounter for closed fracture - Lab Results Lab results reviewed: Yes Fish Bones: 01/18/23 08:31 01/18/23 08:31 <Elidia Montes - Last Filed: 01/18/23 17:58> - Lab Results Fish Bones: 01/18/23 08:31 01/18/23 08:31 <Lena Trejo - Last Filed: 01/18/23 18:02>
[2023-01-18] MEDS ORDERED: PHENYLEPHRINE 10 MG/ML VIAL ONE (11:58)
--- NOTE | 2023-01-18 12:42 | PHARMACY PROGRESS NOTE ---
- Best Possible Medication History Admit Date and Time: 01/18/23 0851 Processed by: Nursing Medication History completed: Yes Patient Interview: Completed As the person ultimately responsible for medication therapy, providers are able to order a medication from an existing home medication list in [facility] via the "Reconcile Routine" prior to Confirmation of that medication by child support officer. Such practice is discouraged except when the physician, in their clinical judg ment, deems that a medical need exists for a medication without regard to previous use.
[2023-01-18] MEDS ORDERED: PROPOFOL 500 MG/50 ML 500 MG/50 ML VIAL ONE (12:54)
[2023-01-18] MEDS ORDERED: ceFAZolin 1 GM VIAL ONE (12:58)
[2023-01-18] MEDS ORDERED: TRANEXAMIC ACID 1,000 MG/10 ML VIAL ONE (13:40)
[2023-01-18] MEDS ORDERED: VANCOMYCIN 1 GM VIAL ONE (14:58)
[2023-01-18] MEDS ORDERED: VANCOMYCIN 1 GM VIAL MC ONE (15:19)
[2023-01-18] MEDS ORDERED: BUPIVACAINE 0.25% PF 10 ML VIAL SUBQ ONE (15:48)
--- NOTE | 2023-01-18 16:03 | OPERATIVE REPORT ---
Operative Report - General Admit Date: 01/18/23 Procedure Date: 01/18/23 Planned Procedure: Open reduction internal fixation right distal femur Pre-Op Diagnosis: Displaced type AO class A, extra-articular fracture right distal femur Procedure Performed: Open reduction internal fixation right distal femur with [employer] Nephew TriGen Curran retrograde femoral nail locked proximally and distally with 5.0 millimeters screws, 11.5 mm x 38 cm length intramedullary rick Post Op Diagnosis: Same as preoperative diagnosis - Procedure Note Primary Surgeon: Hitesh Douglas MD Secondary Surgeon: Rosa Del Cid PAC Anesthesia Provider: Yo Yan CRNA Anesthesia Technique: Spinal Estimated Blood Loss (mL): 100 Indications: This is a 77-year-old woman with no previous problems to right knee, has fallen twice. The first was a fall coming down some steps about 8 days or so prior to her admission. The second event is at her right leg just buckled going up steps causing her to fall and have severe pain, unable to ambulate on right leg. Her right leg showed shortening and external rotation deformity, skin is intact except for some small superficial clean abrasions over her anterior tibia and 1 about 5 mm over the patellar area. Her pain was well localized to the distal femur. She did not have any hip joint pain. Her compartments were soft. She was tender over the distal femur. She had limited motion to her right knee. Her x-rays showed a displaced fracture that seem to be extra-articular in the distal femur. Full-length femur x-rays were obtained. There is no sign of a hip fracture or more proximal fracture other than the distal femur. This was a displaced type extra-articular fracture, confirmed by CT scan. The CT scan was obtained of the distal femur. The fracture was mildly comminuted but was a relatively short and oblique fracture distal femur at the metaphyseal region, extra-articular Findings: The fracture was as described. The intra-articular visualization did not show any definite arthrosis, ligament or meniscal damage. The patella was intact Complications: None - Other Other Information/Narrative: The patient was brought to the operating room table. She was given a lumbar spinal anesthetic. She was placed in the supine position. The right lower extremity was prepped and draped from just above the hip to the entire right lower extremity including the foot. The C-arm image intensifier was covered with a sterile drape. A regular operating room table was utilized. There is no available fluoroscopy table for the operating room. A sterile triangular support was placed beneath the right knee to facilitate knee flexion and traction. A timeout procedure was performed by the entire operating room team and all were in agreement. A 4 cm incision was made from inferior pole of patella and was continued distally to the tibial tubercle. A short medial arthrotomy was made. The notch could be visualized and was engaged with a threaded guidepin. The fracture was reduced longitudinally. The guidepin was placed slightly medial and proximal to the posterior cruciate attachment within the notch. The guidepin was placed above Blumensaat line. The position of the guidepin was confirmed on AP and lateral images before it was pushed proximally, across the fracture. The entry reamer was then introduced over this guidepin. The guidepin was removed and a long intramedullary guide rick with a ball-tipped was then passed from the notch across the fracture and into the proximal femur, just above the lesser trochanter. The length of the rick was determined. Reaming was then carried out from 8 mm to 13 mm in half millimeter increments. The 11.5 mm [employer]varez [employer] Nephew by 38 cm rick and guide were utilized. The nail was impacted over the guide rick trying to achieve a concentric reduction before passing the rick across the fracture. The fracture seem to aligned well, slight posterior tilt on the lateral view to the distal fragment but very acceptable alignment and much improved. On the AP view there is no varus or valgus angulation and nearly all the shortening had been corrected. With the fracture reduced, distal locking screws were inserted from anterolateral, medial and then lateral, total of three 5.0 millimeter screws. The rotation was checked to try to match the opposite left leg. The fracture was gently impacted. The proximal screw was placed in the most distal proximal locking hole using a freehand technique. The first screw attempt just slid past the rick. The screw was removed, readjusted and placed in the locking screw hole, confirmed with true AP and frog-leg lateral views as well as rotational views. The proximal locking screws gave excellent f ixation. I did not feel a second locking screw was necessary. The knee was stable to stress, full range of motion of right knee. Alignment was felt to be satisfactory. The knee joint was irrigated with dilute Betadine, 3-minute lavage. Vancomycin powder 2 g was placed into the knee joint. The capsule was closed with #1 strata fix, subcutaneous tissue with 2 oh strata fix. Skin was closed with standstill pancho. The small incisions that were used for the locking screws were closed with 3-0 nylon. A Mepilex dressing was applied, cast padding and a sterile Tereso wrap about the knee. Sterile dressing was applied to the the small proximal incision, Tegaderm. She received 2 g of Ancef intravenously and a gram of Tranexamic acid. She tolerated procedure well. A physician special ed assistant was medically necessary to help with prepping and draping, positioning, protection of vital structures, assistance during the procedure including wound closure, dressing and/or splinting.
[2023-01-18] MEDS ORDERED: LACTATED RINGERS 1,000 ML IV ONE (16:07)
[2023-01-18] MEDS ORDERED: MORPHINE 2 MG/ML CARPUJECT IVP PRN (16:10)
[2023-01-18] MEDS ORDERED: METOCLOPRAMIDE 10 MG/2 ML VIAL IVP PRN (16:10)
[2023-01-18] MEDS ORDERED: ePHEDrine 50 MG/ML VIAL IVP PRN (16:10)
[2023-01-18] MEDS ORDERED: HYDROmorphone 0.5 MG/0.5 ML SYRINGE IVP PRN (16:10)
[2023-01-18] MEDS ORDERED: ATROPINE ABBOJECT 1 MG/10 ML SYRINGE IVP PRN (16:10)
[2023-01-18] MEDS ORDERED: ONDANSETRON 4 MG/2 ML VIAL IVP PRN (16:10)
[2023-01-18] MEDS ORDERED: fentaNYL 100 MCG/2 ML VIAL IVP PRN (16:10)
[2023-01-18] MEDS ORDERED: DOCUSATE SODIUM 100 MG CAPSULE PO PRN (16:10)
[2023-01-18] MEDS ORDERED: NALOXONE 0.4 MG/ML VIAL IVP PRN (16:10)
[2023-01-18] MEDS ORDERED: ONDANSETRON 4 MG/2 ML VIAL ONE (16:24)
--- NOTE | 2023-01-18 16:35 | XRAY Report ---
PROCEDURE: OR C-Arm Procedure INDICATIONS: ORIF R FEMUR FLUORO TIME: 1.55 TECHNIQUE: 3 intraoperative fluoroscopic images obtained. COMPARISON: None. FINDINGS: 3 intraoperative fluoroscopic images from fixation of the right femur with an intramedullary rick and interlocking screws. IMPRESSION: Intraprocedural fluoroscopy was provided for guidance and anatomic localization. Please see the proc edure report for further details. Reviewed by: Ryan Yuan MD on 01/18/2023 4:34 PM PDT Approved by: Ryan Yuan MD on 01/18/2023 4:34 PM PDT Station ID: [id number]
--- NOTE | 2023-01-18 16:55 | ANESTHESIA POST OP EVALUATION ---
Anesthesia Post Eval - Post Anesthesia Eval Vitals: Last Vital Signs Temp 37.0 C 01/18/23 16:44 Pulse 92 01/18/23 16:44 Resp 15 01/18/23 16:44 BP 113/53 L 01/18/23 16:44 Pulse Ox 93 01/18/23 16:44 O2 Flow Rate 2 01/18/23 10:44 CV Function Including HR & BP: Stable Pain Control: Satisfactory Nausea & Vomiting: Negative Mental Status: Baseline Respiratory Status: Airway Patent, Other (Patient still requiring 2L o2 for sats >90 similar to pre-op status in ER/MSU. Encouraged deep breathing and coughing.) Hydration Status: Satisfactory Anesthesia Complications: None
[2023-01-18] MEDS ORDERED: LACTATED RINGERS 1,000 ML IV SCH (17:00)
[2023-01-18] MEDS: PROCHLORPERAZINE 10 MG/2 ML VIAL IVP PRN (17:34)
[2023-01-18] MEDS: ENOXAPARIN 40 MG/0.4 ML SYRINGE SUBQ SCH (17:34)
[2023-01-18] MEDS: NS W/20 MEQ KCL 1,000 ML IV SCH (17:40)
[2023-01-18] MEDS: HYDROmorphone 0.5 MG/0.5 ML SYRINGE IVP PRN ×3 (18:04→22:34)
[2023-01-18] MEDS: traMADol 50 MG TABLET PO SCH ×2 (18:11→23:57)
[2023-01-18] MEDS: INSULIN LISPRO 300 UNIT/3 ML PEN SUBQ SCH (20:52)
[2023-01-18] MEDS: ACETAMINOPHEN 500 MG TABLET PO SCH (21:27)
[2023-01-18] MEDS: CEFAZOLIN 2G/50ML 0.9% NS 2 GM/50 ML BAG IV SCH (21:30)
[2023-01-19] MEDS: HYDROmorphone 0.5 MG/0.5 ML SYRINGE IVP PRN ×2 (00:43→04:48)
[2023-01-19] MEDS: NS W/20 MEQ KCL 1,000 ML IV SCH ×3 (01:49→19:48)
[2023-01-19] MEDS: oxyCODONE 5 MG TABLET PO PRN ×3 (03:04→19:52)
[2023-01-19 05:31] LABS: BASOPHILS % (AUTO) 0.3 %; EOSINOPHILS % (AUTO) 0.6 %; HCT - HEMATOCRIT 27.7 % (37.0-47.0); HGB - HEMOGLOBIN 9.2 g/dL (12.0-16.0); LYMPHOCYTES % (AUTO) 13.7 %; MEAN CORPUSCULAR HEMOGLOBIN 30.3 pg (27.0-31.0); MEAN CORPUSCULAR HGB CONC 33.2 g/dL (32.0-36.0); MEAN CORPUSCULAR VOLUME 91.1 fL (81.0-99.0); MEAN PLATELET VOLUME 10.1 fL (7.9-10.8); MONOCYTES # (AUTO) 0.9 10^3/uL (0.0-1.0); MONOCYTES % (AUTO) 12.1 %; NEUTROPHILS # (AUTO) 5.2 10^3/uL (1.5-6.6); PLT - PLATELET COUNT 171 10^3/uL (130-450); RED BLOOD COUNT 3.04 10^6/uL (4.20-5.40); RED CELL DISTRIBUTION WIDTH 11.9 % (12.0-15.0); WHITE BLOOD COUNT 7.1 x10^3/uL (4.8-10.8)
[2023-01-19 05:42] LABS: CREATININE 0.9 mg/dL (0.4-1.0); MAGNESIUM 1.7 mg/dL (1.7-2.8)
[2023-01-19] MEDS: traMADol 50 MG TABLET PO SCH ×4 (06:10→23:43)
[2023-01-19] MEDS: ACETAMINOPHEN 500 MG TABLET PO SCH ×3 (06:10→21:13)
[2023-01-19] MEDS: CEFAZOLIN 2G/50ML 0.9% NS 2 GM/50 ML BAG IV SCH (06:12)
--- NOTE | 2023-01-19 07:37 | PROVIDER PROGRESS NOTE ---
Subjective - General Admit Date: 01/18/23 Procedure Date: 01/18/23 Post Op Days: 1 - Review of Systems Wound/Incisions: positive: Dressing dry and intact All Other Systems: positive: Other (Only as in HPI because patient is unable to answer detailed questions due to her nausea/vomiting.) - Other Other Information/Narrative: She is alert, lying in bed. Long she does not move she is comfortable. Her pain control has not been the best. She has had some nausea and vomiting, urinary retention. She denies chest pain, shortness of breath. Objective - Patient Data Vital Signs: Vital Signs x48h Temp Pulse Resp BP Pulse Ox O2 Flow Rate 01/19/23 07:32 36.7 C 79 18 143/53 H 93 3 01/19/23 03:00 37.0 C 95 16 148/63 H 93 3 01/19/23 00:11 99 92 3 Weight: Weight 01/17/23 01/18/23 01/19/23 23:59 23:59 23:59 Weight (kg) 81.647 kg 81.647 kg Intake & Output: Intake and Output Totals x24h 01/17/23 01/18/23 01/19/23 23:59 23:59 23:59 Intake Total 1953.33 443.75 Output Total 2500 Balance -546.67 443.75 - Lab Results Lab Results: 01/19/23 04:32 01/19/23 04:32 Other Lab Results: Lab Results x24hrs 01/19/23 01/19/23 01/19/23 Range/Units 07:27 04:32 04:32 WBC (4.8-10.8) x10^3/uL RBC (4.20-5.40) 10^6/uL Hgb (12.0-16.0) g/dL Hct (37.0-47.0) % MCV (81.0-99.0) fL MCH (27.0-31.0) pg MCHC (32.0-36.0) g/dL RDW (12.0-15.0) % Plt Count (130-450) 10^3/uL MPV (7.9-10.8) fL Neut # (Auto) (1.5-6.6) 10^3/uL Lymph # (Auto) (1.5-3.5) 10^3/uL [place] # (Auto) (0.0-1.0) 10^3/uL Eos # (Auto) (0.0-0.7) 10^3/uL Baso # (Auto) (0.0-0.1) 10^3/uL Absolute Nucleated RBC x10^3/uL Nucleated RBC % /100WBC Sodium 138 (135-145) mmol/L Potassium 4.0 (3.5-5.0) mmol/L Chloride 105 (101-111) mmol/L Carbon Dioxide 27 (21-32) mmol/L Anion Gap 6.0 (6-13) BUN 18 (6-20) mg/dL Creatinine 0.9 (0.4-1.0) mg/dL Estimated GFR (MDRD) 60 L (>89) Glucose 146 H (70-100) mg/dL POC Whole Bld Glucose 115 H (70 - 100) mg/dL Calcium 8.0 L (8.5-10.3) mg/dL Magnesium 1.7 (1.7-2.8) mg/dL Total Bilirubin (0.2-1.0) mg/dL AST (10-42) IU/L ALT (10-60) IU/L Alkaline Phosphatase (42-121) IU/L Total Protein (6.7-8.2) g/dL Albumin (3.2-5.5) g/dL Globulin (2.1-4.2) g/dL Albumin/Globulin Ratio (1.0-2.2) TSH 2.06 (0.34-5.60) uIU/mL 01/19/23 01/18/23 01/18/23 Range/Units 04:32 20:28 08:31 WBC 7.1 (4.8-10.8) x10^3/uL RBC 3.04 L (4.20-5.40) 10^6/uL Hgb 9.2 L (12.0-16.0) g/dL Hct 27.7 L (37.0-47.0) % MCV 91.1 (81.0-99.0) fL MCH 30.3 (27.0-31.0) pg MCHC 33.2 (32.0-36.0) g/dL RDW 11.9 L (12.0-15.0) % Plt Count 171 (130-450) 10^3/uL MPV 10.1 (7.9-10.8) fL Neut # (Auto) 5.2 (1.5-6.6) 10^3/uL Lymph # (Auto) 1.0 L (1.5-3.5) 10^3/uL [place] # (Auto) 0.9 (0.0-1.0) 10^3/uL Eos # (Auto) 0.0 (0.0-0.7) 10^3/uL Baso # (Auto) 0.0 (0.0-0.1) 10^3/uL Absolute Nucleated RBC 0.00 x10^3/uL Nucleated RBC % 0.0 /100WBC Sodium 138 (135-145) mmol/L Potassium 4.4 (3.5-5.0) mmol/L Chloride 102 (101-111) mmol/L Carbon Dioxide 28 (21-32) mmol/L Anion Gap 8.0 (6-13) BUN 23 H (6-20) mg/dL Creatinine 1.1 H (0.4-1.0) mg/dL Estimated GFR (MDRD) 48 L (>89) Glucose 179 H (70-100) mg/dL POC Whole Bld Glucose 154 H (70 - 100) mg/dL Calcium 8.9 (8.5-10.3) mg/dL Magnesium (1.7-2.8) mg/dL Total Bilirubin 0.6 (0.2-1.0) mg/dL AST 17 (10-42) IU/L ALT 14 (10-60) IU/L Alkaline Phosphatase 41 L (42-121) IU/L Total Protein 6.5 L (6.7-8.2) g/dL Albumin 3.7 (3.2-5.5) g/dL Globulin 2.8 (2.1-4.2) g/dL Albumin/Globulin Ratio 1.3 (1.0-2.2) TSH (0.34-5.60) uIU/mL 01/18/23 Range/Units 08:31 WBC 7.2 (4.8-10.8) x10^3/uL RBC 3.57 L (4.20-5.40) 10^6/uL Hgb 10.9 L (12.0-16.0) g/dL Hct 32.8 L (37.0-47.0) % MCV 91.9 (81.0-99.0) fL MCH 30.5 (27.0-31.0) pg MCHC 33.2 (32.0-36.0) g/dL RDW 11.9 L (12.0-15.0) % Plt Count 197 (130-450) 10^3/uL MPV 9.8 (7.9-10.8) fL Neut # (Auto) 5.1 (1.5-6.6) 10^3/uL Lymph # (Auto) 1.3 L (1.5-3.5) 10^3/uL [place] # (Auto) 0.8 (0.0-1.0) 10^3/uL Eos # (Auto) 0.1 (0.0-0.7) 10^3/uL Baso # (Auto) 0.0 (0.0-0.1) 10^3/uL Absolute Nucleated RBC 0.00 x10^3/uL Nucleated RBC % 0.0 /100WBC Sodium (135-145) mmol/L Potassium (3.5-5.0) mmol/L Chloride (101-111) mmol/L Carbon Dioxide (21-32) mmol/L Anion Gap (6-13) BUN (6-20) mg/dL Creatinine (0.4-1.0) mg/dL Estimated GFR (MDRD) (>89) Glucose (70-100) mg/dL POC Whole Bld Glucose (70 - 100) mg/dL Calcium (8.5-10.3) mg/dL Magnesium (1.7-2.8) mg/dL Total Bilirubin (0.2-1.0) mg/dL AST (10-42) IU/L ALT (10-60) IU/L Alkaline Phosphatase (42-121) IU/L Total Protein (6.7-8.2) g/dL Albumin (3.2-5.5) g/dL Globulin (2.1-4.2) g/dL Albumin/Globulin Ratio (1.0-2.2) TSH (0.34-5.60) uIU/mL - Current Medications Current Medications: Current Medications Generic Name Dose Route Start Last Admin Trade Name Freq PRN Reason Stop Dose Admin Acetaminophen 1,000 mg 01/18/23 22:00 01/19/23 06:10 Acetaminophen 500 Mg Tablet PO 1,000 mg TID TA Administration Enoxaparin Sodium 40 mg 01/18/23 17:00 01/18/23 17:34 Enoxaparin 40 Mg/0.4 Ml Syringe SUBQ 40 mg Q24H TA Administration Hydromorphone HCl 0.5 mg 01/18/23 07:53 01/19/23 04:48 Hydromorphone 0.5 Mg/0.5 Ml Syringe IVP 0.5 mg Q2H PRN Administration Pain 8 to 10 Potassium Chloride/Sodium Chloride 1,000 mls @ 125 mls/hr 01/18/23 17:00 01/19/23 01:49 Normal Saline 0.9% W/20 Meq Kcl IV 125 mls/hr .Q8H TA Administration Insulin Human Lispro 1 - 5 unit 01/18/23 21:00 01/18/23 20:52 Insulin Lispro 300 Unit/3 Ml Pen SUBQ 1 unit 0800,1200,1700,2100 [facility] Administration Protocol Oxycodone HCl 5 mg 01/18/23 16:10 01/19/23 03:04 Oxycodone 5 Mg Tablet PO 5 mg Q6HR PRN Administration Severe Breakthrough pain(8-10) Prochlorperazine Edisylate 10 mg 01/18/23 16:40 01/18/23 17:34 Prochlorperazine 10 Mg/2 Ml Vial IVP 10 mg Q6HR PRN Administration Nausea / Vomiting Sodium Chloride 10 ml 01/18/23 09:00 01/19/23 00:00 Sodium Chloride Flush 0.9% 10 Ml Syringe IVP 10 ml 0100,0900,1700 [facility] Administration Tramadol HCl 50 mg 01/18/23 18:00 01/19/23 06:10 Tramadol 50 Mg Tablet PO 50 mg Q6HR TA Administration - Physical Exam Wound/Incisions: positive: Dressing dry and intact Neurologic/Psychiatric: positive: Oriented x3, Motor nml, Sensation nml (She is alert, oriented, no acute distress. Her right leg shows no clinical deformity. Her dressing is dry and intact. Neurovascular is intact right leg.) Impression/Plan - Problem List Problem List: Status post intramedullary rodding right distal femur fracture Would like to try to achieve better pain control, begin mobilizing patient with physical and Occupational Therapy, deep venous thrombosis prophylaxis with Basim enox. Comanage care with our hospitalist to help manage her hypertension and diabetes.
[2023-01-19] MEDS: INSULIN LISPRO 300 UNIT/3 ML PEN SUBQ SCH ×4 (08:05→21:12)
[2023-01-19] MEDS: amLODIPine 5 MG TABLET PO SCH (08:46)
[2023-01-19] MEDS: SODIUM CHLORIDE FLUSH 0.9% 10 ML SYRINGE IVP SCH ×3 (08:48→17:02)
[2023-01-19] MEDS: ONDANSETRON 4 MG/2 ML VIAL IVP PRN (10:00)
[2023-01-19 11:53] LABS: ESTIMATED AVERAGE GLUCOSE 123 mg/dL (70-100); HEMOGLOBIN A1c% 5.9 % (4.27-6.07)
--- NOTE | 2023-01-19 12:28 | PROVIDER PROGRESS NOTE ---
Subjective - Prog Note Date Prog Note Date: 01/19/23 Prog Note Time: 12:25 - Subjective Pt reports feeling: No change Subjective: she's tired, has an emesis bag in front of her "just in case" , pain is controlled. Her main concern is her and son. Son is disabled and they take care of him. They don't know what's going to happen when they and there is no one for him. And her is ? with cognitive deficits. She states it took him a long time to be able to understand she had broken a bone and that she was in severe distress when the accident happened. she denies cpm, cough, sob. Current Medications - Current Medications Current Medications: Active Medications Acetaminophen (Acetaminophen 500 Mg Tablet) 1,000 mg PO TID [facility] Last Admin: 01/19/23 06:10 Dose: 1,000 mg Amlodipine Besylate (Amlodipine 5 Mg Tablet) 5 mg PO DAILY [facility] Last Admin: 01/19/23 08:46 Dose: 5 mg Calcium Carbonate/Glycine (Calcium Carbonate Chew 500 Mg Tablet) 500 mg PO TID [facility] Cholecalciferol (Cholecalciferol 400 Unit Tablet) 800 unit PO DAILY [facility] Docusate Sodium (Docusate Sodium 100 Mg Capsule) 100 mg PO BID PRN PRN Reason: Constipation Enoxaparin Sodium (Enoxaparin 40 Mg/0.4 Ml Syringe) 40 mg SUBQ Q24H [facility] Last Admin: 01/18/23 17:34 Dose: 40 mg Hydromorphone HCl (Hydromorphone 0.5 Mg/0.5 Ml Syringe) 0.5 mg IVP Q2H PRN PRN Reason: Pain 8 to 10 Last Admin: 01/19/23 04:48 Dose: 0.5 mg Potassium Chloride/Sodium Chloride (Normal Saline 0.9% W/20 Meq Kcl) 1,000 mls @ 125 mls/hr IV .Q8H [facility] Last Admin: 01/19/23 11:19 Dose: 125 mls/hr Insulin Human Lispro (Insulin Lispro 300 Unit/3 Ml Pen) 1 - 5 unit SUBQ 0800,1200,1700,2100 [facility]; Protocol Last Admin: 01/19/23 11:18 Dose: Not Given Losartan Potassium (Losartan 50 Mg Tablet) 25 mg PO DAILY [facility] Ondansetron HCl (Ondansetron 4 Mg/2 Ml Vial) 4 mg IVP Q6HR PRN PRN Reason: Nausea / Vomiting Last Admin: 01/19/23 10:00 Dose: 4 mg Oxycodone HCl (Oxycodone 5 Mg Tablet) 5 mg PO Q6HR PRN PRN Reason: Severe Breakthrough pain(8-10) Last Admin: 01/19/23 09:59 Dose: 5 mg Prochlorperazine Edisylate (Prochlorperazine 10 Mg/2 Ml Vial) 10 mg IVP Q6HR PRN PRN Reason: Nausea / Vomiting Last Admin: 01/18/23 17:34 Dose: 10 mg Sodium Chloride (Sodium Chloride Flush 0.9% 10 Ml Syringe) 10 ml IVP PRN PRN PRN Reason: NEEDED PER PROVIDER ORDERS Sodium Chloride (Sodium Chloride Flush 0.9% 10 Ml Syringe) 10 ml IVP 0100,0900,1700 [facility] Last Admin: 01/19/23 08:48 Dose: Not Given Tramadol HCl (Tramadol 50 Mg Tablet) 50 mg PO Q6HR [facility] Last Admin: 01/19/23 11:53 Dose: 50 mg Aspirin [Aspir 81] 81 mg PO DAILY 07/12/14 Cinnamon Bark/Chromium Picolin [Cinnamon Plus Chromium Capsule] 1 each PO BID 07/12/14 Flaxseed Oil [Flaxseed] 1,400 mg PO DAILY 07/12/14 Glucosamine/MSM/Chondroitin A [Ervfjpbskch-Fvizldrbu-UOK Cplt] 1 each PO DAILY 07/12/14 Lovastatin 40 mg PO QPM 07/12/14 Multivit-Min/FA/Lycopene/Lut [Centrum Silver Tablet] 1 each PO DAILY 07/12/14 Turmeric 1 tab PO DAILY 03/06/16 Ubidecarenone [Co Q-10] 75 mg PO DAILY 03/06/16 Acetaminophen/Diphenhydramine [Pain Relief Pm 25-500 mg Cplt] 2 each PO QPM 01/17/23 Irbesartan [Avapro] 37.5 mg ORAL DAILY 01/17/23 Pregabalin [Lyrica] 150 mg PO DAILY 01/17/23 amLODIPine [Norvasc] 5 mg PO DAILY 01/17/23 Objective - Vital Signs/Intake & Output Reviewed Vital Signs: Yes Vital Signs: Vital Signs x48h Temp Pulse Resp BP Pulse Ox O2 Flow Rate 01/19/23 11:17 36.5 C 91 20 136/64 H 92 3 01/19/23 07:32 36.7 C 79 18 143/53 H 93 3 Intake & Output: Intake & Output 01/16/23 01/17/23 01/18/23 01/19/23 23:59 23:59 23:59 23:59 Intake Total 1953.33 443.75 Output Total 2500 Balance -546.67 443.75 - Objective General Appearance: positive: Alert, Other (Pale, fatigued, looks older than stated age. Overwhelmed. She has a disabled son that lives behind their house. Her seems to be cognitively impaired and deaf. She has a lot on her plate as she worries about how all of the things are going to be taken care of with her disability) Eyes Bilateral: positive: PERRL, EOMI ENT: positive: No signs of dehydration, Other (Moderate to severe alopecia. 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 Eyebrows also almost all gone) Neck: positive: No JVD. negative: Stiff neck Respiratory: positive: No respiratory distress. negative: Wheezes, Rales, Rh onchi Cardiovascular: positive: Regular rate & rhythm, Systolic murmur Abdomen: positive: Non-tender, No organomegaly, Nml bowel sounds, No distention Skin: positive: Warm, Dry, Pallor, Other (alopencia) Extremities: positive: Full ROM, No pedal edema Neurologic/Psychiatric: positive: Oriented x3, CN's nml (2-12), Motor nml - Lab Results Fish Bones: 01/19/23 04:32 01/19/23 04:32 Other Labs: Lab Results x24hrs 01/19/23 01/19/23 01/19/23 Range/Units 11:12 07:27 04:32 WBC (4.8-10.8) x10^3/uL RBC (4.20-5.40) 10^6/uL Hgb (12.0-16.0) g/dL Hct (37.0-47.0) % MCV (81.0-99.0) fL MCH (27.0-31.0) pg MCHC (32.0-36.0) g/dL RDW (12.0-15.0) % Plt Count (130-450) 10^3/uL MPV (7.9-10.8) fL Neut # (Auto) (1.5-6.6) 10^3/uL Lymph # (Auto) (1.5-3.5) 10^3/uL [place] # (Auto) (0.0-1.0) 10^3/uL Eos # (Auto) (0.0-0.7) 10^3/uL Baso # (Auto) (0.0-0.1) 10^3/uL Absolute Nucleated RBC x10^3/uL Nucleated RBC % /100WBC Sodium 138 (135-145) mmol/L Potassium 4.0 (3.5-5.0) mmol/L Chloride 105 (101-111) mmol/L Carbon Dioxide 27 (21-32) mmol/L Anion Gap 6.0 (6-13) BUN 18 (6-20) mg/dL Creatinine 0.9 (0.4-1.0) mg/dL Estimated GFR (MDRD) 60 L (>89) Glucose 146 H (70-100) mg/dL POC Whole Bld Glucose 148 H 115 H (70 - 100) mg/dL Estimat Average Glucose (70-100) mg/dL Hemoglobin A1c % (4.27-6.07) % Calcium 8.0 L (8.5-10.3) mg/dL Magnesium 1.7 (1.7-2.8) mg/dL TSH (0.34-5.60) uIU/mL 01/19/23 01/19/23 01/19/23 Range/Units 04:32 04:32 04:32 WBC 7.1 (4.8-10.8) x10^3/uL RBC 3.04 L (4.20-5.40) 10^6/uL Hgb 9.2 L (12.0-16.0) g/dL Hct 27.7 L (37.0-47.0) % MCV 91.1 (81.0-99.0) fL MCH 30.3 (27.0-31.0) pg MCHC 33.2 (32.0-36.0) g/dL RDW 11.9 L (12.0-15.0) % Plt Count 171 (130-450) 10^3/uL MPV 10.1 (7.9-10.8) fL Neut # (Auto) 5.2 (1.5-6.6) 10^3/uL Lymph # (Auto) 1.0 L (1.5-3.5) 10^3/uL [place] # (Auto) 0.9 (0.0-1.0) 10^3/uL Eos # (Auto) 0.0 (0.0-0.7) 10^3/uL Baso # (Auto) 0.0 (0.0-0.1) 10^3/uL Absolute Nucleated RBC 0.00 x10^3/uL Nucleated RBC % 0.0 /100WBC Sodium (135-145) mmol/L Potassium (3.5-5.0) mmol/L Chloride (101-111) mmol/L Carbon Dioxide (21-32) mmol/L Anion Gap (6-13) BUN (6-20) mg/dL Creatinine (0.4-1.0) mg/dL Estimated GFR (MDRD) (>89) Glucose (70-100) mg/dL POC Whole Bld Glucose (70 - 100) mg/dL Estimat Average Glucose 123 H (70-100) mg/dL Hemoglobin A1c % 5.9 (4.27-6.07) % Calcium (8.5-10.3) mg/dL Magnesium (1.7-2.8) mg/dL TSH 2.06 (0.34-5.60) uIU/mL 01/18/23 Range/Units 20:28 WBC (4.8-10.8) x10^3/uL RBC (4.20-5.40) 10^6/uL Hgb (12.0-16.0) g/dL Hct (37.0-47.0) % MCV (81.0-99.0) fL MCH (27.0-31.0) pg MCHC (32.0-36.0) g/dL RDW (12.0-15.0) % Plt Count (130-450) 10^3/uL MPV (7.9-10.8) fL Neut # (Auto) (1.5-6.6) 10^3/uL Lymph # (Auto) (1.5-3.5) 10^3/uL [place] # (Auto) (0.0-1.0) 10^3/uL Eos # (Auto) (0.0-0.7) 10^3/uL Baso # (Auto) (0.0-0.1) 10^3/uL Absolute Nucleated RBC x10^3/uL Nucleated RBC % /100WBC Sodium (135-145) mmol/L Potassium (3.5-5.0) mmol/L Chloride (101-111) mmol/L Carbon Dioxide (21-32) mmol/L Anion Gap (6-13) BUN (6-20) mg/dL Creatinine (0.4-1.0) mg/dL Estimated GFR (MDRD) (>89) Glucose (70-100) mg/dL POC Whole Bld Glucose 154 H (70 - 100) mg/dL Estimat Average Glucose (70-100) mg/dL Hemoglobin A1c % (4.27-6.07) % Calcium (8.5-10.3) mg/dL Magnesium (1.7-2.8) mg/dL TSH (0.34-5.60) uIU/mL ABX Reporting Has patient been on IV antibiotics over the past 48 hours?: Yes Assessment/Plan - Problem List (1) Femur fracture, right Impression: Fall happened a week prior to admission. She then had a loud crack as she stepped off from 1 position to the next with sudden pain. No fall. Postoperative day #1 for open reduction internal fixation right distal femur with a [employer] made a retrograde femoral nail locked proximally and distally with 5 mm screws, 11.5 mm x 38 cm length intramedullary rick. Expected postoperative complications of acute blood loss anemia and pain evaluated by me. Her normal hemoglobin is 12.6. She was admitted 11.5 g and hemoglobin is drifted down to 9.2 g today. Nevertheless she has not drifted down to needing a blood transfusion yet. Cut off is less than 7 g of hemoglobin. Pain is mild to moderate. She says that the pain medicine does work. She is working with occupational therapy and physical therapy today. Plan: I will Continue to monitor daily CBC and transfuse if less than 7 g of hemoglobin. Await evaluation from PT and OT. I explained to the patient that we usually di scharged by the third day. The evaluation provided by PT and OT help guide whether I decide if she goes home with home health or goes to a half-way. She is a [facility] patient and her and she have received the list of [facility] facilities on the [facility] to help her decide if that point comes. They are meeting with utilization review today to discuss options. I will order Calcium 500 mg po tid with Vit D 800 IU daily for healling of bone and to stat minimal treatment for osteoporosis. (2) Diabetes mellitus Glyburide and metformin were not resumed. Glyburide and metformin were on her initial admission list. But the patient denies taking these medications. And pharmacy has reconciled her home med list, and has confirmed the patient has no prescriptions for this. We are using sliding scale short acting insulin between each meal. A1c is 5.9% showing very good control prior to her fall and admission. Glucose December 24: 154 at 8:00 last night Glucose this morning 115, before lunch 148 Plan: I will continue current diabetic diet and low-dose sliding scale insulin before meals. No change in medication. (3) Hypertension Blood pressure 164/58 postoperatively. This morning she is 148/63. She did get amlodipine 5 mg started by orthopedic PA. Home medications are Avapro 37.5 mg daily plus amlodipine 5 mg daily. Plan: Add a substituted ARB in the form of losartan tomorrow morning. 25 mg daily. Avapro is not on our formulary. (4) Hypercholesterolemia Patient takes lovastatin at home and I will resume that today. (5) Chronic kidney disease Patient's last BUN was 26 and last creatinine was 1.1. Today's creatinine is 0.9, BUN 18. So there was some element of preop acute kidney injury that was mild. She is on 125 cc an hour of normal saline for one liter ordered by Orthopedic PA Sherley Daly. Urine output was 2500 cc yesterday. 24 hour balance was actually -547 cc. Today, no urine output has been recorded as of this note. I recommend that we continue to monitor her intake and output. And we will continue to avoid nephrotoxic agents. Decrease IVF to a maintenance of 83.3 cc/hr. (6) Osteoarthritis We recommend resuming her joint supplements (Glucosamine/MSM/Chondroitin A) and her home dose of oxycodone PRN for pain management. (7) Alopecia TSH was checked and normal. Qualifiers: Encounter type: initial encounter Femur location: distal epiphysis Fracture type: closed Fracture alignment: displaced Qualified Code(s): S72.441A - Displaced fracture of lower epiphysis (separation) of right femur, initial encounter for closed fracture Qualifiers: Qualified Code(s): S72.441A - Displaced fracture of lower epiphysis (separation) of right femur, initial encounter for closed fracture
[2023-01-19] MEDS: CALCIUM CARBONATE CHEW 500 MG TABLET PO SCH ×2 (13:53→21:13)
[2023-01-19] MEDS: CHOLECALCIFEROL 400 UNIT TABLET PO SCH (13:53)
[2023-01-19] MEDS: ENOXAPARIN 40 MG/0.4 ML SYRINGE SUBQ SCH (17:01)
[2023-01-20] MEDS: SODIUM CHLORIDE FLUSH 0.9% 10 ML SYRINGE IVP SCH ×3 (00:51→16:30)
[2023-01-20] MEDS: NS W/20 MEQ KCL 1,000 ML IV SCH ×2 (03:48→12:13)
[2023-01-20] MEDS: ACETAMINOPHEN 500 MG TABLET PO SCH ×3 (05:15→21:19)
[2023-01-20] MEDS: traMADol 50 MG TABLET PO SCH ×2 (05:15→13:09)
[2023-01-20] MEDS: CALCIUM CARBONATE CHEW 500 MG TABLET PO SCH ×3 (05:16→21:19)
[2023-01-20 08:04] LABS: BASOPHILS % (AUTO) 0.4 %; EOSINOPHILS # (AUTO) 0.1 10^3/uL (0.0-0.7); EOSINOPHILS % (AUTO) 1.2 %; HCT - HEMATOCRIT 23.8 % (37.0-47.0); HGB - HEMOGLOBIN 8.1 g/dL (12.0-16.0); LYMPHOCYTES # (AUTO) 0.8 10^3/uL (1.5-3.5); LYMPHOCYTES % (AUTO) 10.9 %; MEAN CORPUSCULAR HEMOGLOBIN 30.8 pg (27.0-31.0); MEAN CORPUSCULAR VOLUME 90.5 fL (81.0-99.0); MEAN PLATELET VOLUME 9.5 fL (7.9-10.8); MONOCYTES # (AUTO) 0.7 10^3/uL (0.0-1.0); NEUTROPHILS # (AUTO) 5.8 10^3/uL (1.5-6.6); NEUTROPHILS % (AUTO) 78.2 %; PLT - PLATELET COUNT 145 10^3/uL (130-450); RED BLOOD COUNT 2.63 10^6/uL (4.20-5.40); RED CELL DISTRIBUTION WIDTH 11.9 % (12.0-15.0); WHITE BLOOD COUNT 7.4 x10^3/uL (4.8-10.8)
[2023-01-20] MEDS: LOSARTAN 50 MG TABLET PO SCH (08:12)
[2023-01-20] MEDS: amLODIPine 5 MG TABLET PO SCH (08:12)
[2023-01-20] MEDS: CHOLECALCIFEROL 400 UNIT TABLET PO SCH (08:12)
[2023-01-20] MEDS: INSULIN LISPRO 300 UNIT/3 ML PEN SUBQ SCH (10:13)
[2023-01-20] MEDS: ONDANSETRON 4 MG/2 ML VIAL IVP PRN (10:51)
--- NOTE | 2023-01-20 13:01 | PROVIDER PROGRESS NOTE ---
Subjective - General Admit Date: 01/18/23 Procedure Date: 01/18/23 Post Op Days: 2 Procedure Performed: Right Femur ORIF with Intramedullary Nail - Review of Systems Wound/Incisions: positive: Dressing dry and intact All Other Systems: positive: Other (Only as in HPI because patient is unable to answer detailed questions due to her nausea/vomiting.) - Other Other Information/Narrative: Sitting on the side of the bed with physical therapy and occupational therapy Nauseous and vomiting during orthopedic surgery visit She endorses a clicking sensation in her right leg and points to the right tibia as her site of pain She has pain with weight bearing but not at rest, appropriate pain control at rest She has had difficulty moving to a chair from bed No chest pain or dyspnea (on 3L nasal cannula) OT reports she had orthostatic hypotension yesterday limiting their session Objective - Patient Data Reviewed Vital Signs: Yes Vital Signs: Vital Signs x48h Temp Pulse Resp BP Pulse Ox O2 Flow Rate 01/20/23 08:00 36.6 C 79 17 118/46 L 92 3 01/20/23 07:59 3 Weight: Weight 01/18/23 01/19/23 01/20/23 23:59 23:59 23:59 Weight (kg) 81.647 kg Intake & Output: Intake and Output Totals x24h 01/18/23 01/19/23 01/20/23 23:59 23:59 23:59 Intake Total 1953.33 1913.75 1050 Output Total 2500 1900 550 Balance -546.67 13.75 500 - Lab Results Lab Results: 01/20/23 07:57 01/19/23 04:32 Other Lab Results: Lab Results x24hrs 01/20/23 01/20/23 01/20/23 Range/Units 12:01 07:57 07:25 WBC 7.4 (4.8-10.8) x10^3/uL RBC 2.63 L (4.20-5.40) 10^6/uL Hgb 8.1 L (12.0-16.0) g/dL Hct 23.8 L (37.0-47.0) % MCV 90.5 (81.0-99.0) fL MCH 30.8 (27.0-31.0) pg MCHC 34.0 (32.0-36.0) g/dL RDW 11.9 L (12.0-15.0) % Plt Count 145 (130-450) 10^3/uL MPV 9.5 (7.9-10.8) fL Neut # (Auto) 5.8 (1.5-6.6) 10^3/uL Lymph # (Auto) 0.8 L (1.5-3.5) 10^3/uL Cloud # (Auto) 0.7 (0.0-1.0) 10^3/uL Eos # (Auto) 0.1 (0.0-0.7) 10^3/uL Baso # (Auto) 0.0 (0.0-0.1) 10^3/uL Absolute Nucleated RBC 0.00 x10^3/uL Nucleated RBC % 0.0 /100WBC POC Whole Bld Glucose 138 H 123 H (70 - 100) mg/dL 01/19/23 01/19/23 Range/Units 20:32 16:29 WBC (4.8-10.8) x10^3/uL RBC (4.20-5.40) 10^6/uL Hgb (12.0-16.0) g/dL Hct (37.0-47.0) % MCV (81.0-99.0) fL MCH (27.0-31.0) pg MCHC (32.0-36.0) g/dL RDW (12.0-15.0) % Plt Count (130-450) 10^3/uL MPV (7.9-10.8) fL Neut # (Auto) (1.5-6.6) 10^3/uL Lymph # (Auto) (1.5-3.5) 10^3/uL Cloud # (Auto) (0.0-1.0) 10^3/uL Eos # (Auto) (0.0-0.7) 10^3/uL Baso # (Auto) (0.0-0.1) 10^3/uL Absolute Nucleated RBC x10^3/uL Nucleated RBC % /100WBC POC Whole Bld Glucose 127 H 121 H (70 - 100) mg/dL - Current Medications Current Medications: Current Medications Generic Name Dose Route Start Last Admin Trade Name Freq PRN Reason Stop Dose Admin Acetaminophen 1,000 mg 01/18/23 22:00 01/20/23 05:15 Acetaminophen 500 Mg Tablet PO 1,000 mg TID [facility] Administration Calcium Carbonate/Glycine 500 mg 01/19/23 14:00 01/20/23 05:16 Calcium Carbonate Chew 500 Mg Tablet PO 500 mg TID TA Administration Cholecalciferol 800 unit 01/19/23 13:00 01/20/23 08:12 Cholecalciferol 400 Unit Tablet PO 800 unit DAILY [facility] Administration Enoxaparin Sodium 40 mg 01/18/23 17:00 01/19/23 17:01 Enoxaparin 40 Mg/0.4 Ml Syringe SUBQ 40 mg Q24H TA Administration Hydromorphone HCl 0.5 mg 01/18/23 07:53 01/19/23 04:48 Hydromorphone 0.5 Mg/0.5 Ml Syringe IVP 0.5 mg Q2H PRN Administration Pain 8 to 10 Potassium Chloride/Sodium Chloride 1,000 mls @ 85 mls/hr 01/20/23 11:20 01/20/23 12:13 Normal Saline 0.9% W/20 Meq Kcl IV 85 mls/hr .[id number] [facility] Administration Losartan Potassium 25 mg 01/20/23 09:00 01/20/23 08:12 Losartan 50 Mg Tablet PO 25 mg DAILY [facility] Administration Ondansetron HCl 4 mg 01/18/23 16:10 01/20/23 10:51 Ondansetron 4 Mg/2 Ml Vial IVP 4 mg Q6HR PRN Administration Nausea / Vomiting Oxycodone HCl 5 mg 01/18/23 16:10 01/19/23 19:52 Oxycodone 5 Mg Tablet PO 5 mg Q6HR PRN Administration Severe Breakthrough pain(8-10) Prochlorperazine Edisylate 10 mg 01/18/23 16:40 01/18/23 17:34 Prochlorperazine 10 Mg/2 Ml Vial IVP 10 mg Q6HR PRN Administration Nausea / Vomiting Sodium Chloride 10 ml 01/18/23 09:00 01/20/23 10:13 Sodium Chloride Flush 0.9% 10 Ml Syringe IVP Not Given 0100,0900,1700 [facility] Tramadol HCl 50 mg 01/18/23 18:00 01/20/23 05:15 Tramadol 50 Mg Tablet PO 50 mg Q6HR TA Administration - Physical Exam Comments/Other: Alert and oriented, sitting on the side of the bed Neurovascularly intact to the right lower extremity Nauseous and vomiting during exam Tereso wrap in place to right lower extremity Resting on 3L Nasal cannula Salazar catheter in place Impression/Plan - Problem List Problem List: 77 year old female with a past medical history of pre-diabetes (A1C 5.9), CKD IIIb, hypertension and hyperlipidemia is post operative day 2 from an open reduction internal fixation of the right femur with a intramedullary rick performed on 01/18/[address] Douglas at [facility]. Her pain is controlled at rests and increases with weight bearing. She continues to have urinary retention and nausea and emesis. Her hemoglobin continues to downtrend likely in the setting of volume repletion and dilution. PLAN: - Partial weight bearing with front wheeled walker - Physical therapy and occupational therapy to assist ambulation and evaluate patient - Pain regimen includes acetaminophen, tramadol scheduled and oxycodone and dilaudid as needed. Given nausea, tramadol changed to as needed rather than scheduled. Goal to limit use of narcotic pain medications. Avoiding nephrotoxic agents given CKD and urinary retention. - DVT prophylaxis with Lovenox 40 SQ daily - Regular diet - Follow up with orthopedic clinic within 2 weeks of discharge - Salazar catheter to remain in place secondary to urinary retention - Bowel regimen includes docusate sodium, monitor for bowel movement, last recorded on 01/17/2023 - Disposition: Plan to discharge to [facility] for halfway facility and rehabilitation - Hospitalist expertise appreciated in management of medical comorbidities. - Hospitalist physician recommended discontinuing finger sticks and sliding scale insulin given Hemoglobin A1c of 5.9 today. - Reduced IV normal saline with KCl to 85 mL/hr - Hospitalist physician recommends holding amlodipine in the setting of urinary retention, continue Losartan - Hospitalist physician ordered chest x-ray given oxygen requirement post operatively without evidence of pneumonia
--- NOTE | 2023-01-20 13:09 | XRAY Report ---
PROCEDURE: Chest 1 View X-Ray INDICATIONS: hypoxia, weake TECHNIQUE: One view of the chest was acquired. COMPARISON: None. FINDINGS: Surgical changes and devices: None. Lungs and pleura: No pleural effusions or pneumothorax. Lungs are clear. Mediastinum: Mediastinal contours appear normal. Heart size is normal. Bones and chest wall: No suspicious bony lesions. Overlying soft tissues appear unremarkable. IMPRESSION: No acute cardiopulmonary process. Reviewed by: Parish Taylor MD on 01/20/2023 1:08 PM PDT Approved by: Parish Taylor MD on 01/20/2023 1:08 PM PDT Station ID: [id number]
[2023-01-20] MEDS ORDERED: traMADol 50 MG TABLET PO PRN (13:15)
--- NOTE | 2023-01-20 13:20 | Discharge Plan ---
"Discharge Plan for SNF / VIC - Discharge Plan And Transition Orders Problem Reviewed?: Yes Disposition: 03 SNF DC/Xfer Condition: Stable Allergies and Adverse Reactions: Allergies Allergy/AdvReac Type Severity Reaction Status Date / Time clindamycin AdvReac Emesis Verified 01/17/23 12:30 codeine AdvReac Emesis Verified 01/17/23 12:30 onion [Onion] AdvReac Emesis Verified 01/17/23 12:30 Opioids - Morphine Analogues AdvReac Nausea Verified 01/17/23 12:30 rosiglitazone maleate * AdvReac Unknown Verified 01/17/23 12:30 [From Avandia] Health Concerns: You were admitted to the hospital for a fracture of your right femur after a fall on 01/17/2023. Plan of Treatment: You underwent an open reduction internal fixation of the right femur with an intramedullary rick on 01/18/[address] Douglas at [facility]. There were no complications but you had nausea, vomiting and urinary retention after the surgery. Care Goals: Return to independent ambulation as per baseline. Assessment: Dr. Douglas, orthopedic surgeon, and myself have discussed this with the patient who verbalized understanding of the treatment in the hospital and necessary follow up. Written instructions were provided as a reminder. - SNF / VIC Transition Orders Admit to (Facility): [facility] Under the care of (Name): [facility] Discharge Diagnosis: Right distal femur fracture status post surgical fixation Anemia Hypertension Hyperglycemia Hypercholesterolemia Chronic Kidney Disease Osteoarthritis Osteoporosis Systolic murmur Vertigo Medicare Certification Statement: I certify that Post Hospital retirement care is medically necessary on a continuing basis for any of the conditions for which she/he is receiving care during hospitalization. Notify PCP of admission and forward orders to primary provider for signature. Other Notification Orders: Call PCP immediately if patient develops dyspnea, chest pain/tightness or edema. Additional Bowel Program Orders: If no BM after 2 days, nurse may give M.O.M. 30ml PO PRN and/or ducolax Supp 1 [place] and/or MIGUELINA 250mg P.O., and/or senna 1-2 tabs PO. On day 3 nurse may give repeat above order until residents constipation is resolved. Treatments & Other Orders: Physical and occupational therapy to assist in mobilization and evaluation of patient to return to baseline ambulation. She is partial weight bearing to the right lower extremity with a front wheeled walker. Mepelex dressing to remain in place secured with cast padding and an maurisio wrap. Please sponge bathe around the dressing and do not remove the bandage. Return to [facility] office within 1 week of discharge for evaluation and removal of sutures and pancho. Continue DVT prophylaxis with lovenox until discontinued by orthopedic surgeon. Continue acetaminophen and celebrex for pain control. Use tramadol as needed for break through pain. Continue scopolamine patch and losartan. Administer reglan scheduled every 6 hours for 4 days then use as needed. Routine andres care per protocol of [facility] Oxygen Orders: As needed Orthopedic Orders: Partial weight bearing to right lower extremity with front wheeled walker. Suture and pancho in place. Mepelex and Tegaderm dressings in place. Medication Orders: PLEASE REFER TO THE DISCHARGE MEDICATION LIST. - Medications New Prescriptions: Metoclopramide Inj [Reglan Inj] 5 mg IVP Q6HR #120 ml traMADol [Ultram] 50 mg PO Q6HR PRN #28 tab PRN Reason: Pain 5-7 Celecoxib [Celebrex] 200 mg PO BID PRN #20 cap PRN Reason: Pain 5-7 Lovastatin 40 mg PO QPM 30 Days #30 tab Enoxaparin [Lovenox] 40 mg SUBQ Q24H #30 ml Scopolamine Patch [Transderm-Scop] 1 patch TOP Q3D #10 patch Calcium Carbonate [Tums (Calcium Carbonate 500mg)] 500 mg PO TID #30 tab Cyanocobalamin [Vitamin B-12] 500 mcg PO DAILY #10 tab Cholecalciferol [Vitamin D3] 800 unit PO DAILY #30 tab - Diet Texture: Regular - Therapies | Activity Therapy: Evaluation | Treat if indicated: PT, OT Rehabilitation Potential: Return to independent living Activity: Additional Comments (Partial weight bearing as tolerated) Weight Bearing: Partial Weight Assistance Devices: Walker Additional Instructions: Follow up with your PCP Dr. Lance when able. The internal medicine physician recommends an echocardiogram of your heart given the presence of a murmur during your admission. Your blood counts should be rechecked as well. Follow up with [facility] within 1 week of discharge. Please call for an appointment [phone]. Resume all home medications prescribed by Dr. Lance with the exception of amlodipine for blood pressure. Continued blood clot prevention (DVT prophylaxis) with lovenox 40 mg daily Hospital pain regimen included acetaminophen 1000 mg every 8 hours and tramadol 50 mg every 6 hours as needed. Avoid narcotics due to nausea. Use celebrex 200 mg twice daily as needed for pain control Take calcium and vitamin D as prescribed for osteoporosis Take Reglan 4 times daily for 4 days then use as needed for nausea and vomiting Use a scopolamine patch for vertigo and nausea. One patch can remain in place for 3 days before it should be changed. Continue use of Andres for urinary retention at [facility] Follow Up: Please follow up with your primary care provider and Dr. Douglas as above"
--- NOTE | 2023-01-20 13:40 | PROVIDER PROGRESS NOTE ---
Subjective - Prog Note Date Prog Note Date: 01/20/23 Prog Note Time: 14:05 - Subjective Pt reports feeling: Worse Subjective: she's exhausted, moving more slowly today. Still needing 3 liters of NC even though she is not on oxygen at home. denies cough, chest pain. pain is more today and reluctant to work w PT bc of pain. Current Medications - Current Medications Current Medications: Active Medications Acetaminophen (Acetaminophen 500 Mg Tablet) 1,000 mg PO TID [facility] Last Admin: 01/20/23 05:15 Dose: 1,000 mg Calcium Carbonate/Glycine (Calcium Carbonate Chew 500 Mg Tablet) 500 mg PO TID [facility] Last Admin: 01/20/23 05:16 Dose: 500 mg Cholecalciferol (Cholecalciferol 400 Unit Tablet) 800 unit PO DAILY [facility] Last Admin: 01/20/23 08:12 Dose: 800 unit Docusate Sodium (Docusate Sodium 100 Mg Capsule) 100 mg PO BID PRN PRN Reason: Constipation Enoxaparin Sodium (Enoxaparin 40 Mg/0.4 Ml Syringe) 40 mg SUBQ Q24H [facility] Last Admin: 01/19/23 17:01 Dose: 40 mg Hydromorphone HCl (Hydromorphone 0.5 Mg/0.5 Ml Syringe) 0.5 mg IVP Q2H PRN PRN Reason: Pain 8 to 10 Last Admin: 01/19/23 04:48 Dose: 0.5 mg Potassium Chloride/Sodium Chloride (Normal Saline 0.9% W/20 Meq Kcl) 1,000 mls @ 85 mls/hr IV .[id number] [facility] Last Admin: 01/20/23 12:13 Dose: 85 mls/hr Losartan Potassium (Losartan 50 Mg Tablet) 25 mg PO DAILY [facility] Last Admin: 01/20/23 08:12 Dose: 25 mg Ondansetron HCl (Ondansetron 4 Mg/2 Ml Vial) 4 mg IVP Q6HR PRN PRN Reason: Nausea / Vomiting Last Admin: 01/20/23 10:51 Dose: 4 mg Oxycodone HCl (Oxycodone 5 Mg Tablet) 5 mg PO Q6HR PRN PRN Reason: Severe Breakthrough pain(8-10) Last Admin: 01/19/23 19:52 Dose: 5 mg Prochlorperazine Edisylate (Prochlorperazine 10 Mg/2 Ml Vial) 10 mg IVP Q6HR PRN PRN Reason: Nausea / Vomiting Last Admin: 01/18/23 17:34 Dose: 10 mg Sodium Chloride (Sodium Chloride Flush 0.9% 10 Ml Syringe) 10 ml IVP PRN PRN PRN Reason: NEEDED PER PROVIDER ORDERS Sodium Chloride (Sodium Chloride Flush 0.9% 10 Ml Syringe) 10 ml IVP 0100,0900,1700 TA Last Admin: 01/20/23 10:13 Dose: Not Given Tramadol HCl (Tramadol 50 Mg Tablet) 50 mg PO Q6HR PRN PRN Reason: PAIN 5-7 Aspirin [Aspir 81] 81 mg PO DAILY 07/12/14 Cinnamon Bark/Chromium Picolin [Cinnamon Plus Chromium Capsule] 1 each PO BID 07/12/14 Flaxseed Oil [Flaxseed] 1,400 mg PO DAILY 07/12/14 Glucosamine/MSM/Chondroitin A [Ysfvrvfhvui-Ewcnmconb-KKM Cplt] 1 each PO DAILY 07/12/14 Lovastatin 40 mg PO QPM 07/12/14 Multivit-Min/FA/Lycopene/Lut [Centrum Silver Tablet] 1 each PO DAILY 07/12/14 Turmeric 1 tab PO DAILY 03/06/16 Ubidecarenone [Co Q-10] 75 mg PO DAILY 03/06/16 Acetaminophen/Diphenhydramine [Pain Relief Pm 25-500 mg Cplt] 2 each PO QPM 01/17/23 Irbesartan [Avapro] 37.5 mg ORAL DAILY 01/17/23 Pregabalin [Lyrica] 150 mg PO DAILY 01/17/23 amLODIPine [Norvasc] 5 mg PO DAILY 01/17/23 Objective - Vital Signs/Intake & Output Reviewed Vital Signs: Yes Vital Signs: Vital Signs x48h Temp Pulse Resp BP Pulse Ox O2 Flow Rate 01/20/23 08:00 36.6 C 79 17 118/46 L 92 3 01/20/23 07:59 3 Intake & Output: Intake & Output 01/17/23 01/18/23 01/19/23 01/20/23 23:59 23:59 23:59 23:59 Intake Total 1953.33 1913.75 1050 Output Total 2500 1900 550 Balance -546.67 13.75 500 - Objective General Appearance: positive: Other (not lethargic but increased wan appearance, pale, very fatigued) Eyes Bilateral: positive: PERRL, EOMI ENT: positive: Other (alopecia) Neck: positive: No JVD. negative: Stiff neck Respiratory: positive: No respiratory distress, Rales (at bases). negative: Wheezes, Rhonchi Cardiovascular: positive: Regular rate & rhythm, Systolic murmur Abdomen: positive: Non-tender, No organomegaly, Nml bowel sounds, No distention Skin: positive: Warm, Dry, Pallor Extremities: positive: Full ROM, Pedal edema (left ankle, and right is wrapped) Neurologic/Psychiatric: positive: Oriented x3, CN's nml (2-12), Weakness (generalized and worse than yesterday), Other (just not as interactive today as she was yesterday.). negative: Motor nml (can't move quickly w pain in R hip) - Lab Results Fish Bones: 01/20/23 07:57 01/19/23 04:32 Other Labs: Lab Results x24hrs 01/20/23 01/20/23 01/20/23 Range/Units 12:01 07:57 07:25 WBC 7.4 (4.8-10.8) x10^3/uL RBC 2.63 L (4.20-5.40) 10^6/uL Hgb 8.1 L (12.0-16.0) g/dL Hct 23.8 L (37.0-47.0) % MCV 90.5 (81.0-99.0) fL MCH 30.8 (27.0-31.0) pg MCHC 34.0 (32.0-36.0) g/dL RDW 11.9 L (12.0-15.0) % Plt Count 145 (130-450) 10^3/uL MPV 9.5 (7.9-10.8) fL Neut # (Auto) 5.8 (1.5-6.6) 10^3/uL Lymph # (Auto) 0.8 L (1.5-3.5) 10^3/uL Swisher # (Auto) 0.7 (0.0-1.0) 10^3/uL Eos # (Auto) 0.1 (0.0-0.7) 10^3/uL Baso # (Auto) 0.0 (0.0-0.1) 10^3/uL Absolute Nucleated RBC 0.00 x10^3/uL Nucleated RBC % 0.0 /100WBC POC Whole Bld Glucose 138 H 123 H (70 - 100) mg/dL 01/19/23 01/19/23 Range/Units 20:32 16:29 WBC (4.8-10.8) x10^3/uL RBC (4.20-5.40) 10^6/uL Hgb (12.0-16.0) g/dL Hct (37.0-47.0) % MCV (81.0-99.0) fL MCH (27.0-31.0) pg MCHC (32.0-36.0) g/dL RDW (12.0-15.0) % Plt Count (130-450) 10^3/uL MPV (7.9-10.8) fL Neut # (Auto) (1.5-6.6) 10^3/uL Lymph # (Auto) (1.5-3.5) 10^3/uL Swisher # (Auto) (0.0-1.0) 10^3/uL Eos # (Auto) (0.0-0.7) 10^3/uL Baso # (Auto) (0.0-0.1) 10^3/uL Absolute Nucleated RBC x10^3/uL Nucleated RBC % /100WBC POC Whole Bld Glucose 127 H 121 H (70 - 100) mg/dL ABX Reporting Has patient been on IV antibiotics over the past 48 hours?: No Assessment/Plan - Problem List (1) Acute blood loss anemia Impression: Baseline hemoglobin is 12.6. She is continue to drift slowly down since surgery. She is 8.1 today. Yesterday she was 9.2. She does have orthostatic hypotension in spite of aggressive IV fluid for maintenance at 125 cc an hour. Externally on exam there is no oozing, bleeding. But I must assume that this patient has had some bleeding due to surgery and fracture and that it is contained within the muscles and fascia of her leg. She is still not below 7 g of hemoglobin. She is not tachycardic over 100. Plan: Continue to watch daily hemoglobin and transfuse if below 7. (2) Orthostatic hypotension Impression: Supine blood pressure 134/64. Sitting blood pressure 135/83. Standing blood pressure 102/52. This was done yesterday morning. Today's blood pressure is 118/46. Pulse is 79. Again, this is in spite of aggressive fluid resuscitation of 125 cc an hour. It is also in the context that her hemoglobin is slowly dropping. Review of intake and output balance does not show fluid overload. She is having good urine output. Yesterday was 1900 cc. At home her blood pressure medicines are Avapro and Norvasc. We have her on losartan and Norvasc here. Plan: Cut back on IV fluids to avoid fluid overload Stop her Norvasc and continue the losartan Recheck thostatics tomorrow Continue to monitor closely for signs and symptoms of bleeding (3) Cardiac murmur Impression: I hear a fairly brisk systolic murmur. I had hoped to get an echocardiogram on her before she left. But our echocardiogram tech is not available this week. As such I would recommend that she get an echo in the outpatient setting (4) Femur fracture, right Impression: Fall happened a week prior to admission. She then had a loud crack as she stepped off from 1 position to the next with sudden pain. No fall. Postoperative day #2 for open reduction internal fixation right distal femur with a [employer] made a retrograde femoral nail locked proximally and distally with 5 mm screws, 11.5 mm x 38 cm length intramedullary rick. Expected postoperative complications of acute blood loss anemia and pain are present and being addressed by me and Ortho PA. Her normal hemoglobin is 12.6. She was admitted 11.5 g and hemoglobin is drifted down to 8.1 g today. Yesterday she was having urinary retention of 700 cc and 900 cc over the course of the day. I ordered that a Salazar catheter be inserted after 3 straight caths. Nevertheless she has not drifted down to needing a blood transfusion yet. Cut off is less than 7 g of hemoglobin. Pain is mild to moderate. She says that the pain medicine does work. But she seems very limited by pain. Unable to stand very well today. Unable to get to the bathroom and back without limiting pain. Short of breath. Seems more fatigued today than yesterday. She is on 3 L nasal cannula. She has been on 3 L since January 18. On admission she was on 2 L. Calcium and vitamin D have been started at 500 mg p.o. 3 times daily and 800 international units daily, respectively. Though should be continued indefinitely. Plan: Check chest x-ray. She does have some fluid overload on exam and that she has minimal crackles at the base of her lungs, and her left ankle is edematous with 1+ edema. She says that is new for her. Right ankle (affected broken leg) does not have edema but she has an Tereso wrap compressing it. As such I will decrease normal saline from 125 cc an hour to 85 cc an hour. I will also give her 1 dose of Lasix 20 mg IV push. I would recommend that she continue the Salazar catheter for the next few days. She has decreased mobility, is in pain, is having urinary retention. She can have her Salazar catheter removed at the detention facility. (5) Diabetes mellitus Glyburide and metformin were not resumed. Glyburide and metformin were on her initial admission list. But the patient denies taking these medications. And pharmacy has reconciled her home med list, and has confirmed the patient has no prescriptions for this. We are using sliding scale short acting insulin between each meal. A1c is 5.9% showing very good control prior to her fall and admission. Glucose January 18: 154 at 8:00 last night Glucose January 19: 115, 148, 121, 127 January 20 glucose: 123, 138 Plan: I will continue current diabetic diet I will discontinue [id number] glucose check, and sliding scale insulin (6) Hypertension Blood pressure 164/58 postoperatively. This morning she is 118/46. Yesterday she received her first dose of amlodipine. Home medications are Avapro 37.5 mg daily plus amlodipine 5 mg daily. Today I started losartan 25 mg daily. Her orthostasis was present before either 1 of these medications was given to her. Plan: Continue losartan moving forward, and stop the amlodipine. (7) Hypercholesterolemia Patient takes lovastatin at home and I resumed that 01/19 (8) Chronic kidney disease Patient's last BUN was 26 and last creatinine was 1.1. 01/19 creatinine was 0.9, BUN 18. So there was some element of preop acute kidney injury that was mild. She is on 125 cc an hour of normal saline. . Urine output was 2500 cc yesterday. I am reducing NS rate to 85 cc/hr. (9) Osteoarthritis We recommend resuming her joint supplements (Glucosamine/MSM/Chondroitin A) and her home dose of oxycodone PRN for pain management. (10) Alopecia TSH was checked and normal. Qualifiers: Qualified Code(s): S72.441A - Displaced fracture of lower epiphysis (separation) of right femur, initial encounter for closed fracture
[2023-01-20] MEDS ORDERED: FUROSEMIDE 20 MG/2 ML VIAL IVP STA (13:49)
--- NOTE | 2023-01-20 16:19 | DISCHARGE SUMMARY ---
"Discharge Summary Admit Date: 01/18/23 Discharge Date: 01/21/23 Discharging Provider: DEMETRIO Agrawal Primary Care Provider: Dr. Lance Code Status: Attempt Resuscitation Condition at Discharge: Stable Discharge Disposition: 03 SNF DC/Xfer Discharge Facility Name: [facility] - DIAGNOSES Admission Diagnoses: Right distal femur fracture status post surgical fixation Acute blood loss anemia Vertigo Hypertension Hyperglycemia Hypercholesterolemia Chronic Kidney Disease Osteoarthritis Osteoporosis Systolic murmur Discharge Diagnoses with Status of Each Condition: Right distal femur fracture status post surgical fixation - stable with pain regimen of celebrex and acetaminophen with as needed tramadol Acute blood loss anemia - stable, iron repletion with IV iron Vertigo - stable with scopolamine patch Hypertension - stable on losartan, discontinued amlodipine Hyperglycemia - stable Hypercholesterolemia - stable Chronic Kidney Disease - stable Osteoarthritis - stable Osteoporosis - stable Systolic murmur - stable, recommended echocardiogram by internal medicine physician - HPI History of Present Illness: 77-year-old woman who presents to the emergency room after a fall. She reports trying to go up a step at home, feeling a crunch in her right thigh, falling and losing ability to bear weight on right leg. She also had a fall about 8 days prior, also at home, coming down some steps in her solarium. She fell onto her thomson with abrasion and contusion. She had x-rays of the lower leg in the emergency room after the first fall which did not show a fracture to the tibia or fibula. After the first fall 8 days ago she was able to get up and walk and did not have severe pain. She is a community ambulater without history of prior leg injuries or prior fracture. She reports a medical history of diet controlled diabetes mellitus, chronic kidney disease and hypertension. No history of deep v enous thrombosis. - CONSULTS | PROCEDURES Consultations: Internal medicine, Social work Procedures: CT Right lower extremity with 3D reconstructive views on 01/17/2023 - displaced oblique distal femur metaphyseal fracture 01/18/2023 - EKG showing normal sinus rhythm with left axis deviation Open reduction internal fixation, right femur with intramedullary rick on 01/18/2023. No complications. Chest X-ray 01/20/2023 - no evidence of pneumonia or pleural effusion - HOSPITAL COURSE Hospital Course: On 01/18/2023 she was admitted to the orthopedic surgery service at [facility] and underwent an open reduction internal fixation of the right femur with intramedullary rick by Annelise by Dr. Douglas. There were no intra- operative complications. Her wound was closed with sutures and pancho and covered with a Mepilex dressing as well as web roll and Tereso bandage. She was not immobilized in a splint and made partial weightbearing with front wheeled walker for her weightbearing status. She was transferred to the floor where her pain was controlled with acetaminophen, tramadol and as needed Oxycodone and hydromorphone. NSAID medications were initially held given acute kidney injury in the setting of chronic kidney disease, however, after fluid resuscitation and improvement in kidney markers, Celebrex was used as needed for pain control. She experienced post operative nausea and emesis likely in the setting of narcotic use and so these medications were limited. She was later reported to experience nausea and vertigo at baseline and so Reglan 10 mg was added in a scheduled manner with a scopolamine patch with intended effect. Initially Zofran and Compazine provided minimal relief for nausea and vomiting. Nausea and emesis improved with Reglan and she was able to tolerate increasing oral intake. Her nausea limited her ability to participate in formal rehabilitation, however, with improving nausea she was able to be assisted to the chair with physical and occupational therapy. She was found to be osteoporotic and initiated on calcium and vitamin D. She received lovenox 40 daily subcutaneously for deep venous thrombosis prophylaxis post operatively which will continue after discharge to [facility]. She was started on a bowel regimen during her admission. On post operative day 1 and 2 she was found to have post operative urinary retention and underwent straight catheterization prior to placement of a andres catheter. Her home amlodipine was held in the setting of urinary retention and nephrotoxic medications were avoided. Her blood pressure remained stable on losartan without amlodipine and so amlodipine was discontinued at discharge. The Andres catheter remained in place at time of discharge. During her admission she had an oxygen requirement of 2-3 L via nasal cannula with reported weakness without cough. A chest x-ray was obtained on post operative day 2 which showed no evidence of pneumonia or pleural effusion. During her admission she was found to have an acute kidney injury that resolved post operatively with fluid resuscitation. Her hemoglobin was down trending post operatively with a yolanda or 8.0 and she did not require a transfusion. She was found to have low iron studies and was given IV iron once prior to discharge. She was also started on Vitamin B12. No chest pain given nausea and limited bowel movements, she was not initiated on oral iron at discharge. During her admission her medical comorbidities were managed by an internal medicine physician. She received sliding scale insulin on post operative day 1 and was found to have a hemoglobin A1c of 5.9 and so insulin was discontinued as it was stable below 180 post operatively. Hospitalist physician expertise was appreciated for management of hypertension, vertigo, osteoporosis, hyperlipidemia, nausea, anemia, chronic kidney disease and orthostatic hypotension. Vertigo was managed with a scopolamine patch. She was found to have a systolic murmur, however, echocardiogram services were unavailable and so the echocardiogram was not obtained during admission. Internal medicine recommends follow up in the out patient setting. On postoperative day 3, discharge was delayed due to poor oral intake and continued nausea and emesis. On postoperative day 4, 01/22/2023 the patient was stable for discharge to [facility] for post operative rehabilitation. - ALLERGIES Allergies/Adverse Reactions: Allergies Allergy/AdvReac Type Severity Reaction Status Date / Time clindamycin AdvReac Emesis Verified 01/17/23 12:30 codeine AdvReac Emesis Verified 01/17/23 12:30 onion [Onion] AdvReac Emesis Verified 01/17/23 12:30 Opioids - Morphine Analogues AdvReac Nausea Verified 01/17/23 12:30 rosiglitazone maleate * AdvReac Unknown Verified 01/17/23 12:30 [From Avandia] - MEDICATIONS Home Medications: Ambulatory Orders Medication Instructions Recorded Confirmed Cinnamon Bark/Chromium Picolin 1 each PO BID 07/12/14 01/17/23 [Cinnamon Plus Chromium Capsule] Flaxseed Oil [Flaxseed] 1,400 mg PO DAILY 07/12/14 01/17/23 Glucosamine/MSM/Chondroitin A 1 each PO DAILY 07/12/14 01/17/23 [[id number]-Rmsfypdyp-HSG Cplt] Multivit-Min/FA/Lycopene/Lut 1 each PO DAILY 07/12/14 01/17/23 [Centrum Silver Tablet] Turmeric 1 tab PO DAILY 03/06/16 01/17/23 Ubidecarenone [Co Q-10] 75 mg PO DAILY 03/06/16 01/17/23 Irbesartan [Avapro] 37.5 mg ORAL DAILY 01/17/23 01/17/23 Pregabalin [Lyrica] 150 mg PO DAILY 01/17/23 01/17/23 Calcium Carbonate [Tums (Calcium 500 mg PO TID #30 tab 01/21/23 Carbonate 500mg)] Cholecalciferol [Vitamin D3] 800 unit PO DAILY #30 tab 01/21/23 Enoxaparin [Lovenox] 40 mg SUBQ Q24H #30 ml 01/21/23 Lovastatin 40 mg PO QPM 30 Days #30 tab 01/21/23 traMADol [Ultram] 50 mg PO Q6HR PRN #28 tab 01/21/23 Celecoxib [Celebrex] 200 mg PO BID PRN #20 cap 01/22/23 Cyanocobalamin [Vitamin B-12] 500 mcg PO DAILY #10 tab 01/22/23 Metoclopramide [Reglan] 10 mg PO Q6H #24 tablet 01/22/23 Metoclopramide [Reglan] 10 mg PO Q6H PRN #30 tablet 01/22/23 Scopolamine Patch [Transderm-Scop] 1 patch TOP Q3D #10 patch 01/22/23 Pregabalin [Lyrica] 150 mg PO DAILY #30 cap 01/23/23 - PHYSICAL EXAM AT DISCHARGE Physical Exam Other/Comments: Alert, semirecumbent in bed. Neurovascular intact to the right lower extremity with Tereso bandage and web roll in place. No drainage. She is in no acute distress, minimal pain. Appropriate motion to right lower extremity - LABS Result Diagrams: 01/21/23 04:45 01/19/23 04:32 - DIAGNOSTIC IMAGING Diagnostic Imaging Results: Final report reviewed - QUALITY (Female Hip Fx Only) Was patient sent home on osteoporosis medication?: Yes - FOLLOW UP Follow Up: [facility] within 7 days of discharge PCP Dr Lance's office for evaluation of medical comorbidities. She was found to have a systolic murmur during her hospital admission but echocardiogram services were unavailable. Hospitalist physician recommends an outpatient echocardiogram if PCP is amenable. She was also found to have acute blood loss anemia and low iron studies. Given nausea and limited bowel movements during admission, oral iron was not initiated - TIME SPENT Time Spent in Discharge (Minutes): 60"
[2023-01-20] MEDS: ENOXAPARIN 40 MG/0.4 ML SYRINGE SUBQ SCH (16:30)
[2023-01-21] MEDS: SODIUM CHLORIDE FLUSH 0.9% 10 ML SYRINGE IVP SCH ×3 (00:10→17:14)
[2023-01-21] MEDS: NS W/20 MEQ KCL 1,000 ML IV SCH ×3 (00:17→18:34)
[2023-01-21] MEDS: ONDANSETRON 4 MG/2 ML VIAL IVP PRN ×2 (00:17→06:12)
[2023-01-21 05:06] LABS: BASOPHILS % (AUTO) 0.5 %; EOSINOPHILS # (AUTO) 0.1 10^3/uL (0.0-0.7); EOSINOPHILS % (AUTO) 1.8 %; HCT - HEMATOCRIT 24.1 % (37.0-47.0); LYMPHOCYTES # (AUTO) 1.2 10^3/uL (1.5-3.5); LYMPHOCYTES % (AUTO) 17.9 %; MEAN CORPUSCULAR HEMOGLOBIN 30.3 pg (27.0-31.0); MEAN CORPUSCULAR HGB CONC 33.2 g/dL (32.0-36.0); MEAN CORPUSCULAR VOLUME 91.3 fL (81.0-99.0); MEAN PLATELET VOLUME 9.6 fL (7.9-10.8); MONOCYTES # (AUTO) 0.5 10^3/uL (0.0-1.0); MONOCYTES % (AUTO) 8.1 %; NEUTROPHILS # (AUTO) 4.7 10^3/uL (1.5-6.6); NEUTROPHILS % (AUTO) 71.1 %; PLT - PLATELET COUNT 168 10^3/uL (130-450); RED BLOOD COUNT 2.64 10^6/uL (4.20-5.40); RED CELL DISTRIBUTION WIDTH 11.9 % (12.0-15.0); WHITE BLOOD COUNT 6.5 x10^3/uL (4.8-10.8)
[2023-01-21] MEDS: ACETAMINOPHEN 500 MG TABLET PO SCH ×3 (05:35→22:00)
[2023-01-21] MEDS: CALCIUM CARBONATE CHEW 500 MG TABLET PO SCH ×3 (05:36→22:09)
[2023-01-21] MEDS: LOSARTAN 50 MG TABLET PO SCH (08:37)
[2023-01-21] MEDS: polyethylene glycoL 3350 17 GM PACKET PO SCH (08:37)
[2023-01-21] MEDS: CHOLECALCIFEROL 400 UNIT TABLET PO SCH (08:37)
[2023-01-21] MEDS: oxyCODONE 5 MG TABLET PO PRN (08:45)
[2023-01-21] MEDS: PROCHLORPERAZINE 10 MG/2 ML VIAL IVP PRN (08:45)
[2023-01-21] MEDS: METOCLOPRAMIDE 10 MG/2 ML VIAL IVP SCH ×2 (12:54→17:14)
--- NOTE | 2023-01-21 16:56 | PROVIDER PROGRESS NOTE ---
Subjective - General Admit Date: 01/18/23 Procedure Date: 01/18/23 Post Op Days: 3 Procedure Performed: Right Femur ORIF with Intramedullary Nail - Review of Systems Wound/Incisions: positive: Dressing dry and intact All Other Systems: positive: Other (Only as in HPI because patient is unable to answer detailed questions due to her nausea/vomiting.) - Other Other Information/Narrative: Alert, semirecumbent in bed She reports she is still Still nauseated with decreasing emesis She was up to chair yesterday with physical therapy She reports pain with weightbearing Her pain is located primarily inferior to the patella about the tibial tubercle She reports poor appetite Objective - Patient Data Reviewed Vital Signs: Yes Vital Signs: Vital Signs x48h Temp Pulse Resp BP Pulse Ox O2 Flow Rate 01/21/23 15:41 36.7 C 74 16 132/60 H 99 2 Intake & Output: Intake and Output Totals x24h 01/19/23 01/20/23 01/21/23 23:59 23:59 23:59 Intake Total 1913.75 2350 1200 Output Total 1900 3050 1300 Balance 13.75 -700 -100 - Lab Results Lab Results: 01/21/23 04:45 01/19/23 04:32 Other Lab Results: Lab Results x24hrs 01/21/23 Range/Units 04:45 WBC 6.5 (4.8-10.8) x10^3/uL RBC 2.64 L (4.20-5.40) 10^6/uL Hgb 8.0 L (12.0-16.0) g/dL Hct 24.1 L (37.0-47.0) % MCV 91.3 (81.0-99.0) fL MCH 30.3 (27.0-31.0) pg MCHC 33.2 (32.0-36.0) g/dL RDW 11.9 L (12.0-15.0) % Plt Count 168 (130-450) 10^3/uL MPV 9.6 (7.9-10.8) fL Neut # (Auto) 4.7 (1.5-6.6) 10^3/uL Lymph # (Auto) 1.2 L (1.5-3.5) 10^3/uL [place] # (Auto) 0.5 (0.0-1.0) 10^3/uL Eos # (Auto) 0.1 (0.0-0.7) 10^3/uL Baso # (Auto) 0.0 (0.0-0.1) 10^3/uL Absolute Nucleated RBC 0.00 x10^3/uL Nucleated RBC % 0.0 /100WBC - Current Medications Current Medications: Current Medications Generic Name Dose Route Start Last Admin Trade Name Freq PRN Reason Stop Dose Admin Acetaminophen 1,000 mg 01/18/23 22:00 01/21/23 14:22 Acetaminophen 500 Mg Tablet PO 1,000 mg TID TA Administration Calcium Carbonate/Glycine 500 mg 01/19/23 14:00 01/21/23 14:22 Calcium Carbonate Chew 500 Mg Tablet PO 500 mg TID TA Administration Cholecalciferol 800 unit 01/19/23 13:00 01/21/23 08:37 Cholecalciferol 400 Unit Tablet PO 800 unit DAILY TA Administration Enoxaparin Sodium 40 mg 01/18/23 17:00 01/20/23 16:30 Enoxaparin 40 Mg/0.4 Ml Syringe SUBQ 40 mg Q24H TA Administration Potassium Chloride/Sodium Chloride 1,000 mls @ 85 mls/hr 01/20/23 11:20 01/21/23 13:35 Normal Saline 0.9% W/20 Meq Kcl IV 85 mls/hr .[id number] TA Administration Losartan Potassium 25 mg 01/20/23 09:00 01/21/23 08:37 Losartan 50 Mg Tablet PO 25 mg DAILY TA Administration Metoclopramide HCl 5 mg 01/21/23 12:00 01/21/23 12:54 Metoclopramide 10 Mg/2 Ml Vial IVP 5 mg Q6HR TA Administration Ondansetron HCl 4 mg 01/18/23 16:10 01/21/23 06:12 Ondansetron 4 Mg/2 Ml Vial IVP 4 mg Q6HR PRN Administration Nausea / Vomiting Polyethylene Glycol 17 gm 01/21/23 09:00 01/21/23 08:37 Polyethylene Glycol 3350 17 Gm Packet PO 17 gm DAILY TA Administration Prochlorperazine Edisylate 10 mg 01/18/23 16:40 01/21/23 08:45 Prochlorperazine 10 Mg/2 Ml Vial IVP 10 mg Q6HR PRN Administration Nausea / Vomiting Sodium Chloride 10 ml 01/18/23 09:00 01/21/23 09:10 Sodium Chloride Flush 0.9% 10 Ml Syringe IVP Not Given 0100,0900,1700 [facility] Tramadol HCl 50 mg 01/20/23 13:15 01/21/23 00:17 Tramadol 50 Mg Tablet PO 50 mg Q6HR PRN Administration PAIN 5-7 - Physical Exam Comments/Other: Alert, lying in bed semirecumbent Neurovascular intact to the right lower extremity in the femoral and sciatic nerves Tereso wrap is in place with web roll Tenderness to palpation at the distalmost aspect of the incision about the inferior patella Impression/Plan - Problem List Problem List: 77 year old female with a past medical history of pre-diabetes (A1C 5.9), CKD IIIb, hypertension and hyperlipidemia is post operative day 3 from an open reduction internal fixation of the right femur with a intramedullary rick performed on 01/18/[address] Douglas at [facility]. Her pain is controlled at rest and increases with weight bearing. She continues to have urinary retention and nausea and emesis with poor oral intake. Her hemoglobin is stable today. Improved oral fluid intake today although she was net -700 cc yesterday. PLAN: - Partial weight bearing with front wheeled walker - Physical therapy and occupational therapy to assist ambulation and evaluate patient - Pain regimen includes acetaminophen and tramadol as needed. Discontinued narcotic medications other than tramadol in the setting of nausea. Continue avoiding nephrotoxic agents given CKD and urinary retention. - DVT prophylaxis with Lovenox 40 SQ daily - Carb controlled diet with continued NS with KCl at 85 ml/hr - Follow up with orthopedic clinic within 1 week of discharge - Salazar catheter to remain in place secondary to urinary retention - Bowel regimen includes docusate sodium and MiraLax. Continue to monitor for bowel movement, last recorded on 01/17/2023 - Disposition: Plan to discharge to [facility] in 1-2 days for fpc facility and rehabilitation - Hospitalist expertise appreciated in management of medical comorbidities. - Internal medicine recommends one additional night of hospitalization given nausea and poor oral intake. Scheduled Reglan initiated today.
--- NOTE | 2023-01-21 17:08 | PROVIDER PROGRESS NOTE ---
Assessment/Plan - Problem List (1) N&V (nausea and vomiting) Assessment/Plan: Immediately after surgery she was nauseated. We first thought it was from getting narcotics. Then she was nauseated for 2 more days despite being on no narcotics even the last 24 hours. She gets Compazine alternating with Zofran and still has nausea that breaks through. Because of this she is only taken in 25% of her diet Plan: Today I have discontinued all narcotic opiate meds except Ultram. Since she is a diabetic, she may have gastroparesis therefore I will order scheduled Reglan for the next 24 hours Continue with IV fluids but will decrease the rate somewhat If she can tolerate about 2 meals, and hydrate better orally, I would consider her stable to be discharged to go to a SNF for rehab. I spoke to the Orthopedic PA, Sherley Patino about this plan today. Hopefully she can be discharged tomorrow. The RN will update the , requested someone call him. This afternoon her told the RN that the patient has nausea constantly, especially worse with travel on planes and boats. Therefore she may have vertigo and I will order a Scopolamine patch topically. Will order a Nutrition Consult, since the patient is describing all the foods she avoids due to CKD, and her CKD is minimal. The diet could be liberalized. (2) Femur fracture, right Impression: Fall happened a week prior to admission. She then had a loud crack as she stepped off from 1 position to the next with sudden pain. No fall. She is now Postoperative day #3 after open reduction internal fixation right distal femur by Orthopedics. Pain is mild to moderate. She is working with occupational therapy and physical therapy today. Plan: As per evaluation from PT and OT, she will be discharged to a SNF for rehab. Continue Calcium 500 mg po tid with Vit D 800 IU daily for healing of bone and to start some minimal treatment for osteoporosis. (3) Anemia Expected postoperative complications of acute blood loss anemia and pain evaluated by me. All labs were reviewed. Her normal hemoglobin is 12.6. She was admitted with 11.5 g and hemoglobin is drifted down to 8g today. Nevertheless she has not drifted down to needing a blood transfusion yet. Cut off is less than 7 g of hemoglobin. Plan: Continue to monitor daily CBC and transfuse if less than 7 g of hemoglobin. Will check her B12, folate levels and her Iron stores and replace if low. (4) Diabetes mellitus, diet controlled Glyburide and metformin were not resumed. Glyburide and metformin were on her initial admission list. But the patient denies taking these medications. And pharmacy has reconciled her home med list, and has confirmed the patient has no prescriptions for this. She hesrself said she is a diet-controlled diabetic. We are using sliding scale short acting insulin between each meal. A1c is 5.9% showing very good control prior to her fall and admission. Plan: I will continue current diabetic diet and low-dose sliding scale insulin before meals. No change in medication. (5) Hypertension Blood pressure is mostly controlled. She did get amlodipine 5 mg started by orthopedic PA. Home medications are Avapro 37.5 mg daily plus Amlodipine 5 mg daily. Plan: Continue the substituted ARB in the form of losartan 5 mg daily, since Avapro is not on our formulary. (6) Orthostatic hypotension Improved. It was noted on postop day #1, the first day she tried to get up with PT and it added to her weakness and inability to stand. All VS were reviewed: Supine BP 136/55, HR 92. Sitting BP 139/81, HR 98. Standing BP 139/61, HR 115. This is still a 25 point increase in HR, and an increase over 10 point signifies orthostasis, most likely from volume depletion. Plan: I will decrease her Amldipine dose from 5 mg daily to 2.5 mg daily. Continue with some gentle iv fluids. Encourage po liquids. (7) Chronic kidney disease Patient's last BUN was 26 and last creatinine was 1.1. So there was some element of preop acute kidney injury that was mild. She was on 125 cc an hour o f normal saline for one liter ordered by Orthopedic PA Sherley Daly. Yesterday the iv rate was decreased to 85 cc/hr, in anticipation of her taking in adequate fluids orally. But she is only taking in 25%, as charted. All labs were reviewed. She has a normal BUN/creat of 18/0.9 today. I told her this Plan: I recommend that we continue to monitor her intake and output. Continue to avoid nephrotoxic agents. Decrease IVF further to 50 cc/hr since she is less nauseated today after the scheduled iv Reglan was started and she will be starting a Scopalamine patch Will order a Nutrition Consult, since the patient is describing all the foods she avoids due to CKD, and her CKD is minimal. The diet could be liberalized. I told her this and she said, it is because she has been on a Renal diet that she does not have kidney failure. (8) Osteoarthritis We recommend resuming her joint supplements (Glucosamine/MSM/Chondroitin A) (9) Hypercholesterolemia Patient takes Lovastatin at home and we have resumed that (10) Alopecia TSH was checked and is normal. - Current Meds Current Meds: Current Medications Generic Name Dose Route Start Last Admin Trade Name Freq PRN Reason Stop Dose Admin Acetaminophen 1,000 mg 01/18/23 22:00 01/21/23 14:22 Acetaminophen 500 Mg Tablet PO 1,000 mg TID TA Administration Calcium Carbonate/Glycine 500 mg 01/19/23 14:00 01/21/23 14:22 Calcium Carbonate Chew 500 Mg Tablet PO 500 mg TID TA Administration Cholecalciferol 800 unit 01/19/23 13:00 01/21/23 08:37 Cholecalciferol 400 Unit Tablet PO 800 unit DAILY TA Administration Enoxaparin Sodium 40 mg 01/18/23 17:00 01/20/23 16:30 Enoxaparin 40 Mg/0.4 Ml Syringe SUBQ 40 mg Q24H TA Administration Potassium Chloride/Sodium Chloride 1,000 mls @ 85 mls/hr 01/20/23 11:20 01/21/23 13:35 Normal Saline 0.9% W/20 Meq Kcl IV 85 mls/hr .[id number] TA Administration Losartan Potassium 25 mg 01/20/23 09:00 01/21/23 08:37 Losartan 50 Mg Tablet PO 25 mg DAILY TA Administration Metoclopramide HCl 5 mg 01/21/23 12:00 01/21/23 12:54 Metoclopramide 10 Mg/2 Ml Vial IVP 5 mg Q6HR TA Administration Ondansetron HCl 4 mg 01/18/23 16:10 01/21/23 06:12 Ondansetron 4 Mg/2 Ml Vial IVP 4 mg Q6HR PRN Administration Nausea / Vomiting Polyethylene Glycol 17 gm 01/21/23 09:00 01/21/23 08:37 Polyethylene Glycol 3350 17 Gm Packet PO 17 gm DAILY TA Administration Prochlorperazine Edisylate 10 mg 01/18/23 16:40 01/21/23 08:45 Prochlorperazine 10 Mg/2 Ml Vial IVP 10 mg Q6HR PRN Administration Nausea / Vomiting Sodium Chloride 10 ml 01/18/23 09:00 01/21/23 09:10 Sodium Chloride Flush 0.9% 10 Ml Syringe IVP Not Given 0100,0900,1700 TA Tramadol HCl 50 mg 01/20/23 13:15 01/21/23 00:17 Tramadol 50 Mg Tablet PO 50 mg Q6HR PRN Administration PAIN 5-7 - Lab Result Fish Bone Diagrams: 01/21/23 04:45 01/19/23 04:32 - Additional Planning My Orders: My Active Orders 01/21/23 08:31 Orthostatic [Vital Signs - Orthostatic] [RC] DAILY 01/21/23 10:28 Nutrition Consult [CONS] Routine 01/21/23 12:00 Metoclopramide Inj [Reglan Inj] 5 mg IVP Q6HR 01/21/23 18:00 Scopolamine Patch [Transderm-Scop] 1 patch TOP Q3D Subjective - Subjective Patient Reports: Nausea (For the past 2 days she is only taken in 25% of her diet mostly the reason being nausea. Today ordered Reglan which helped with breakfast and lunch. The RN spoke to the who said that nausea is not new for her, it especially happens when she travels by boat or by plane), Pain (pain of R leg is minimal) Objective Vital Signs: Vital Signs - 24 hr 01/20/23 01/21/23 01/21/23 19:00 00:20 07:46 Temperature 37.3 C Heart Rate [ 87 Brachial] Respiratory 18 Rate Blood Pressure 136/59 H [Right Brachial artery] O2 Saturation 92 If not protocol 3 3 2 : Oxygen Flow, liters/minute 01/21/23 01/21/23 08:00 15:41 Temperature 36.5 C 36.7 C Heart Rate [ 84 74 Brachial] Respiratory 18 16 Rate Blood Pressure 150/67 H 132/60 H [Right Brachial artery] O2 Saturation 94 99 If not protocol 2 2 : Oxygen Flow, liters/minute Oxygen O2 Source Nasal cannula Oxygen Flow Rate 2 I&O (Last 24 Hrs): Intake and Output Totals x24h 01/19/23 01/20/23 01/21/23 23:59 23:59 23:59 Intake Total 1913.75 2350 1200 Output Total 1900 3050 1300 Balance 13.75 -700 -100 General: Alert, Oriented x3, Other (alopecia) HEENT: Mucous membr. moist/pink, Other (Alopecia) Neck: Supple, No JVD Neuro: Alert, Non Focal, Other (Appears fatigued) Cardiovascular: Regular rate Respiratory: No respiratory distress Abdomen: Soft, No tenderness Extremities: No clubbing, Other (Right knee and below the R knee is tender (surg was done above the R knee)) - Results Results: Laboratory Results WBC 6.5 x10^3/uL (4.8-10.8) 01/21/23 04:45 RBC 2.64 10^6/uL (4.20-5.40) L 01/21/23 04:45 Hgb 8.0 g/dL (12.0-16.0) L 01/21/23 04:45 Hct 24.1 % (37.0-47.0) L 01/21/23 04:45 MCV 91.3 fL (81.0-99.0) 01/21/23 04:45 MCH 30.3 pg (27.0-31.0) 01/21/23 04:45 MCHC 33.2 g/dL (32.0-36.0) 01/21/23 04:45 RDW 11.9 % (12.0-15.0) L 01/21/23 04:45 Plt Count 168 10^3/uL (130-450) 01/21/23 04:45 MPV 9.6 fL (7.9-10.8) 01/21/23 04:45 Neut # (Auto) 4.7 10^3/uL (1.5-6.6) 01/21/23 04:45 Lymph # (Auto) 1.2 10^3/uL (1.5-3.5) L 01/21/23 04:45 [place] # (Auto) 0.5 10^3/uL (0.0-1.0) 01/21/23 04:45 Eos # (Auto) 0.1 10^3/uL (0.0-0.7) 01/21/23 04:45 Baso # (Auto) 0.0 10^3/uL (0.0-0.1) 01/21/23 04:45 Absolute Nucleated RBC 0.00 x10^3/uL 01/21/23 04:45 Nucleated RBC % 0.0 /100WBC 01/21/23 04:45 PT 12.4 secs (9.9-12.6) 01/17/23 14:40 INR 1.1 (0.8-1.2) 01/17/23 14:40 Sodium 138 mmol/L (135-145) 01/19/23 04:32 Potassium 4.0 mmol/L (3.5-5.0) 01/19/23 04:32 Chloride 105 mmol/L (101-111) 01/19/23 04:32 Carbon Dioxide 27 mmol/L (21-32) 01/19/23 04:32 Anion Gap 6.0 (6-13) 01/19/23 04:32 BUN 18 mg/dL (6-20) 01/19/23 04:32 Creatinine 0.9 mg/dL (0.4-1.0) 01/19/23 04:32 Estimated GFR (MDRD) 60 (>89) L 01/19/23 04:32 Glucose 146 mg/dL (70-100) H 01/19/23 04:32 POC Whole Bld Glucose 138 mg/dL (70 - 100) H 01/20/23 12:01 Estimat Average Glucose 123 mg/dL (70-100) H 01/19/23 04:32 Hemoglobin A1c % 5.9 % (4.27-6.07) 01/19/23 04:32 Calcium 8.0 mg/dL (8.5-10.3) L 01/19/23 04:32 Magnesium 1.7 mg/dL (1.7-2.8) 01/19/23 04:32 Total Bilirubin 0.6 mg/dL (0.2-1.0) 01/18/23 08:31 AST 17 IU/L (10-42) 01/18/23 08:31 ALT 14 IU/L (10-60) 01/18/23 08:31 Alkaline Phosphatase 41 IU/L (42-121) L 01/18/23 08:31 Total Protein 6.5 g/dL (6.7-8.2) L 01/18/23 08:31 Albumin 3.7 g/dL (3.2-5.5) 01/18/23 08:31 Globulin 2.8 g/dL (2.1-4.2) 01/18/23 08:31 Albumin/Globulin Ratio 1.3 (1.0-2.2) 01/18/23 08:31 TSH 2.06 uIU/mL (0.34-5.60) 01/19/23 04:32 - Procedures Procedures: Procedures EXCISION OF ASCENDING COLON, ENDO (03/09/16)
[2023-01-21] MEDS: ENOXAPARIN 40 MG/0.4 ML SYRINGE SUBQ SCH (17:13)
[2023-01-21] MEDS ORDERED: SCOPOLAMINE PATCH TOP SCH (18:00)
[2023-01-22] MEDS: METOCLOPRAMIDE 10 MG/2 ML VIAL IVP SCH ×3 (00:04→12:50)
[2023-01-22] MEDS: SODIUM CHLORIDE FLUSH 0.9% 10 ML SYRINGE IVP SCH ×2 (00:08→09:26)
[2023-01-22] MEDS ORDERED: MAGNESIUM HYDROXIDE 2,400 MG/30 ML UDC PO ONE (02:18)
[2023-01-22] MEDS: SENNA 8.6 MG TABLET PO SCH ×3 (03:25→15:43)
[2023-01-22 05:26] LABS: % IRON SATURATION 20 % (20-50); IRON 33 ug/dL (28-170); TOTAL IRON BINDING CAPACITY 164 ug/dL (250-450); TRANSFERRIN 117 mg/dL (192-382)
[2023-01-22 05:46] LABS: FOLATE 6.86 ng/mL (5.90 - >24.8)
[2023-01-22] MEDS: SODIUM CHLORIDE FLUSH 0.9% 10 ML SYRINGE IVP PRN ×3 (05:58→12:52)
[2023-01-22] MEDS: NS W/20 MEQ KCL 1,000 ML IV SCH (05:59)
[2023-01-22] MEDS: CALCIUM CARBONATE CHEW 500 MG TABLET PO SCH ×2 (06:00→14:35)
[2023-01-22] MEDS: ACETAMINOPHEN 500 MG TABLET PO SCH ×2 (06:00→14:26)
[2023-01-22] MEDS ORDERED: PRENATAL VITAMIN TABLET PO SCH (09:00)
[2023-01-22] MEDS ORDERED: CYANOCOBALAMIN 500 MCG TABLET PO SCH (09:00)
[2023-01-22] MEDS ORDERED: FERRIC GLUCONATE 125 MG in SODIUM CHLORIDE 0.9% 100ML 100 ML IV ONE (09:11)
[2023-01-22] MEDS: LOSARTAN 50 MG TABLET PO SCH (09:24)
[2023-01-22] MEDS: polyethylene glycoL 3350 17 GM PACKET PO SCH (09:25)
[2023-01-22] MEDS: CHOLECALCIFEROL 400 UNIT TABLET PO SCH (09:25)
--- NOTE | 2023-01-22 11:09 | PROVIDER PROGRESS NOTE ---
Assessment/Plan - Problem List (1) Femur fracture, right Qualifiers: Qualified Code(s): S72.441A - Displaced fracture of lower epiphysis (separation) of right femur, initial encounter for closed fracture Assessment/Plan: Her fall happened a week prior to admission. She heard a loud crack several days later, as she stepped and had sudden pain. No fall then. She is now Postop day #4 after ORIF of right distal femur, done by Orthopedics. Post-op pain is mild to moderate. She is working with occupational therapy and physical therapy, now that she is not nauseated. Recommend: She is ready for discharge to a SNF for rehab. Continue Calcium 500 mg po tid with Vit D 800 IU daily for healing of bone and to start some minimal treatment for osteoporosis. Because she is significantly debilitated, slow to move, would recommend discharging her to the SNF with a Salazar in place. Continue with Ultram as needed for severe pain. You may use Celebrex for moderate pain, since her creatinine is essentially normal DVT [facility] be as [facility] I spoke to the Orthopedic PA, Sherley Patino about this plan today. (2) N&V (nausea and vomiting) Assessment/Plan: Immediately after surgery she was nauseated. We first thought it was from getting narcotics. Then she was nauseated for 2 more days despite being on no narcotics She got Compazine alternating with Zofran and still had nausea that broke through. Because of ongoing nausea, she was only taking in 25% of her diet I discontinued all narcotic opiate meds except Ultram. Since she is a diabetic, and may have gastroparesis, I ordered scheduled Reglan and this worked to suppress her nausea Recommend: She can be discharged today and I recommend using Reglan 10 mg scheduled every 6 hours for the next 4 days, and then Reglan every 6 hours as needed for nausea following that. She needs a new prescription for that sent to the SNF. I spoke to the Orthopedic PA, Sherley Patino about this plan today. (3) Vertigo Her informed us just yesterday, that she has had N/V for years, it happens when she is traveling in a boat or airplane, or watching sports with rapid movements. Plan: I have started a Scopolamine patch topically every 72 hours. She should be continued with that as a new prescription at discharge to the SNF as well. (4) Anemia All labs were reviewed. Her admission Hgb was 11.5 g and hemoglobin has drifted down to 8g and plateaued there. This is likely from IV fluids that she has been getting continuously since admission. She has not drifted down to needing a blood transfusion yet, at a Hgb of 7 g I checked her B12, folate levels and her Iron stores, to replace if low. All l abs were reviewed. Her B12 and folate levels are adequate. She has mild deficiency of iron stores Plan: Because of her nausea, I will avoid giving her oral iron replacement, which will also add to constipation We will give 1 dose of IV iron today. (5) Diabetes mellitus, diet controlled Glyburide and metformin were not resumed since the patient denied taking these medications. Then pharmacy reconciled her home med list, and confirmed the patient has no oral meds for her DM. She hesrself told me she is a diet- controlled diabetic. We have been using sliding scale short acting insulin between each meal. A1c is 5.9% showing very good control prior to her fall and admission. Recommend Continue a diabetic diet after DCh to the SNF. (6) Orthostatic hypotension Improved. It was noted on postop day #1, the first day she tried to get up with PT, and it added to her weakness and inability to stand. The static vital signs were checked at and were abnormal yesterday. Therefore she was only put an ARB (Losartan), and not Amlodipine, when her BP meds were resumed Plan: Do not resume Amlodipine, after discharge to SNF Encourage p.o. fluids (6) Hypertension Blood pressure is controlled and running 130/70, VS were reviewed.. Home medications were Avapro 37.5 mg daily plus Amlodipine 5 mg daily. Here we substituted her ARB and used Losartan 5 mg daily, since Avapro is not on our formulary. We did not use the Amlodipine, due to orthostasis. Recommend: She can resume her prior dose of Avapro 37.5 mg daily after discharge to the SNF, and remain off of any Amlodipine. Was discussed with the orthopedic PA today (7) Chronic kidney disease All labs were reviewed. She has a normal BUN/creat after iv fluids for 4 days. I told her this and she said "It is because she has been on a Renal diet that she does not have kidney failure". I ordered a Nutrition consult, to offer her meals that her N/V can tolerate, and the patient was not amenable to change her diet overall. Plan: Continue to avoid nephrotoxins and continue a DM diet. (8) Osteoarthritis We recommend resuming her joint supplements (Glucosamine/MSM/Chondroitin A) (9) Hypercholesterolemia Patient takes Lovastatin at home and she may continue that (10) Alopecia TSH was checked and was normal. I will sign off the case. Thank you for allowing us to participate in the care of this patient. - Current Meds Current Meds: Current Medications Generic Name Dose Route Start Last Admin Trade Name Freq PRN Reason Stop Dose Admin Acetaminophen 1,000 mg 01/18/23 22:00 01/22/23 06:00 Acetaminophen 500 Mg Tablet PO 1,000 mg TID TA Administration Calcium Carbonate/Glycine 500 mg 01/19/23 14:00 01/22/23 06:00 Calcium Carbonate Chew 500 Mg Tablet PO 500 mg TID TA Administration Cholecalciferol 800 unit 01/19/23 13:00 01/22/23 09:25 Cholecalciferol 400 Unit Tablet PO 800 unit DAILY TA Administration Cyanocobalamin 500 mcg 01/22/23 09:00 01/22/23 09:25 Cyanocobalamin 500 Mcg Tablet PO 500 mcg DAILY TA Administration Potassium Chloride/Sodium Chloride 1,000 mls @ 50 mls/hr 01/21/23 18:00 01/22/23 05:59 Normal Saline 0.9% W/20 Meq Kcl IV 50 mls/hr .Q20H TA Administration Losartan Potassium 25 mg 01/20/23 09:00 01/22/23 09:24 Losartan 50 Mg Tablet PO 25 mg DAILY TA Administration Metoclopramide HCl 5 mg 01/21/23 12:00 01/22/23 05:58 Metoclopramide 10 Mg/2 Ml Vial IVP 5 mg Q6HR TA Administration Ondansetron HCl 4 mg 01/18/23 16:10 01/21/23 06:12 Ondansetron 4 Mg/2 Ml Vial IVP 4 mg Q6HR PRN Administration Nausea / Vomiting Polyethylene Glycol 17 gm 01/21/23 09:00 01/22/23 09:25 Polyethylene Glycol 3350 17 Gm Packet PO 17 gm DAILY TA Administration Multivit/Folic Acid/Iron 1 tab 01/22/23 09:00 01/22/23 09:25 Vitamin Tablet PO 1 tab DAILYWM TA Administration Prochlorperazine Edisylate 10 mg 01/18/23 16:40 01/21/23 08:45 Prochlorperazine 10 Mg/2 Ml Vial IVP 10 mg Q6HR PRN Administration Nausea / Vomiting Scopolamine HBr 1 patch 01/21/23 18:00 01/21/23 17:21 Scopolamine Patch TOP 1 patch Q3D TA Administration Senna 17.2 - 25.8 mg 01/22/23 03:00 01/22/23 10:30 Senna 8.6 Mg Tablet PO 01/22/23 21:01 17.2 mg Q6H TA Administration Sodium Chloride 10 ml 01/18/23 07:25 01/22/23 10:30 Sodium Chloride Flush 0.9% 10 Ml Syringe IVP 10 ml PRN PRN Administration NEEDED PER PROVIDER ORDERS Sodium Chloride 10 ml 01/18/23 09:00 01/22/23 09:26 Sodium Chloride Flush 0.9% 10 Ml Syringe IVP Not Given 0100,0900,1700 TA Tramadol HCl 50 mg 01/20/23 13:15 01/21/23 00:17 Tramadol 50 Mg Tablet PO 50 mg Q6HR PRN Administration PAIN 5-7 - Lab Result Fish Bone Diagrams: 01/21/23 04:45 01/19/23 04:32 - Additional Planning My Orders: My Active Orders 01/21/23 10:28 Nutrition Consult [CONS] Routine 01/21/23 12:00 Metoclopramide Inj [Reglan Inj] 5 mg IVP Q6HR 01/21/23 18:00 Ns W/20 Meq KCl [Normal Saline 0.9% W/20 Meq KCl] 1,000 ml IV 50 mls/hr Scopolamine Patch [Transderm-Scop] 1 patch TOP Q3D 01/22/23 COVID-19 [facility] Stat 01/22/23 09:00 Cyanocobalamin [Vitamin B-12] 500 mcg PO DAILY Vitamin [Trinatal Rx 1] 1 tab PO DAILYWM Subjective - Subjective Patient Reports: Resting Comfortably Objective Vital Signs: Vital Signs - 24 hr 01/21/23 01/21/23 01/21/23 15:41 19:10 23:54 Temperature 36.7 C 37.2 C Heart Rate [ 74 88 Brachial] Respiratory 16 18 Rate Blood Pressure 132/60 H 130/56 L [Right Brachial artery] O2 Saturation 99 94 If not protocol 2 2 2 : Oxygen Flow, liters/minute 01/22/23 07:25 Temperature 37.0 C Heart Rate [ 82 Brachial] Respiratory 16 Rate Blood Pressure 139/60 H [Right Brachial artery] O2 Saturation 95 If not protocol 2 : Oxygen Flow, liters/minute Oxygen O2 Source Nasal cannula Oxygen Flow Rate 2 I&O (Last 24 Hrs): Intake and Output Totals x24h 01/20/23 01/21/23 01/22/23 23:59 23:59 23:59 Intake Total 2350 1825 570.833 Output Total 3050 1925 1500 Balance -700 -100 -929.167 General: Alert Neck: Supple Neuro: Alert, Non Focal Cardiovascular: Regular rate Respiratory: No respiratory distress Abdomen: No tenderness Extremities: No edema - Results Results: Laboratory Results WBC 6.5 x10^3/uL (4.8-10.8) 01/21/23 04:45 RBC 2.64 10^6/uL (4.20-5.40) L 01/21/23 04:45 Hgb 8.0 g/dL (12.0-16.0) L 01/21/23 04:45 Hct 24.1 % (37.0-47.0) L 01/21/23 04:45 MCV 91.3 fL (81.0-99.0) 01/21/23 04:45 MCH 30.3 pg (27.0-31.0) 01/21/23 04:45 MCHC 33.2 g/dL (32.0-36.0) 01/21/23 04:45 RDW 11.9 % (12.0-15.0) L 01/21/23 04:45 Plt Count 168 10^3/uL (130-450) 01/21/23 04:45 MPV 9.6 fL (7.9-10.8) 01/21/23 04:45 Neut # (Auto) 4.7 10^3/uL (1.5-6.6) 01/21/23 04:45 Lymph # (Auto) 1.2 10^3/uL (1.5-3.5) L 01/21/23 04:45 [place] # (Auto) 0.5 10^3/uL (0.0-1.0) 01/21/23 04:45 Eos # (Auto) 0.1 10^3/uL (0.0-0.7) 01/21/23 04:45 Baso # (Auto) 0.0 10^3/uL (0.0-0.1) 01/21/23 04:45 Absolute Nucleated RBC 0.00 x10^3/uL 01/21/23 04:45 Nucleated RBC % 0.0 /100WBC 01/21/23 04:45 PT 12.4 secs (9.9-12.6) 01/17/23 14:40 INR 1.1 (0.8-1.2) 01/17/23 14:40 Sodium 138 mmol/L (135-145) 01/19/23 04:32 Potassium 4.0 mmol/L (3.5-5.0) 01/19/23 04:32 Chloride 105 mmol/L (101-111) 01/19/23 04:32 Carbon Dioxide 27 mmol/L (21-32) 01/19/23 04:32 Anion Gap 6.0 (6-13) 01/19/23 04:32 BUN 18 mg/dL (6-20) 01/19/23 04:32 Creatinine 0.9 mg/dL (0.4-1.0) 01/19/23 04:32 Estimated GFR (MDRD) 60 (>89) L 01/19/23 04:32 Glucose 146 mg/dL (70-100) H 01/19/23 04:32 POC Whole Bld Glucose 138 mg/dL (70 - 100) H 01/20/23 12:01 Estimat Average Glucose 123 mg/dL (70-100) H 01/19/23 04:32 Hemoglobin A1c % 5.9 % (4.27-6.07) 01/19/23 04:32 Calcium 8.0 mg/dL (8.5-10.3) L 01/19/23 04:32 Magnesium 1.7 mg/dL (1.7-2.8) 01/19/23 04:32 Iron 33 ug/dL (28-170) 01/22/23 04:52 TIBC 164 ug/dL (250-450) L 01/22/23 04:52 % Saturation 20 % (20-50) 01/22/23 04:52 Transferrin 117 mg/dL (192-382) L 01/22/23 04:52 Total Bilirubin 0.6 mg/dL (0.2-1.0) 01/18/23 08:31 AST 17 IU/L (10-42) 01/18/23 08:31 ALT 14 IU/L (10-60) 01/18/23 08:31 Alkaline Phosphatase 41 IU/L (42-121) L 01/18/23 08:31 Total Protein 6.5 g/dL (6.7-8.2) L 01/18/23 08:31 Albumin 3.7 g/dL (3.2-5.5) 01/18/23 08:31 Globulin 2.8 g/dL (2.1-4.2) 01/18/23 08:31 Albumin/Globulin Ratio 1.3 (1.0-2.2) 01/18/23 08:31 Vitamin B12 200 pg/mL (180-914) 01/22/23 04:52 Folate 6.86 ng/mL (5.90 - >24.8) 01/22/23 04:52 TSH 2.06 uIU/mL (0.34-5.60) 01/19/23 04:32 Blood Type A POSITIVE 01/22/23 04:52 Blood Type Recheck A POSITIVE 01/21/23 04:45 Antibody Screen NEGATIVE 01/22/23 04:52 - Procedures Procedures: Procedures EXCISION OF ASCENDING COLON, ENDO (03/09/16)
[2023-01-22] MEDS ORDERED: ENOXAPARIN 40 MG/0.4 ML SYRINGE SUBQ SCH (12:00)
[2023-01-22 13:46] VITALS: BP 130/55
== END 2023-01-22 14:58 | DRG 481 ==
LOC: EDUNIT# → ED 12:22 → MS2 01-18 08:51
PROVIDERS: ADMIT Orthopaedic Surgery; ATTEND Orthopaedic Surgery
PROC: 0QSB06Z Reposition Right Lower Femur with Intramedullary Internal Fixation Device, Open Approach (ICD-10-PCS; principal; 2023-01-18 12:00)
DX: S72.441A Displaced fracture of lower epiphysis (separation) of right femur, initial encounter for closed fracture (principal); W19.XXXA Unspecified fall, initial encounter; S72.491A Other fracture of lower end of right femur, initial encounter for closed fracture; Y92.9 Unspecified place or not applicable; E11.9 Type 2 diabetes mellitus without complications; I10 Essential (primary) hypertension; F41.9 Anxiety disorder, unspecified; R11.0 Nausea; D62 Acute posthemorrhagic anemia; N17.9 Acute kidney failure, unspecified; W10.9XXA Fall (on) (from) unspecified stairs and steps, initial encounter; R42 Dizziness and giddiness; E11.22 Type 2 diabetes mellitus with diabetic chronic kidney disease; E11.65 Type 2 diabetes mellitus with hyperglycemia; I12.9 Hypertensive chronic kidney disease with stage 1 through stage 4 chronic kidney disease, or unspecified chronic kidney disease; N18.32 Chronic kidney disease, stage 3b; E78.00 Pure hypercholesterolemia, unspecified; M19.90 Unspecified osteoarthritis, unspecified site; M81.0 Age-related osteoporosis without current pathological fracture; E66.9 Obesity, unspecified; R11.2 Nausea with vomiting, unspecified; I95.1 Orthostatic hypotension; Z68.30 Body mass index [BMI] 30.0-30.9, adult; Z91.81 History of falling; L65.9 Nonscarring hair loss, unspecified; R01.1 Cardiac murmur, unspecified; R33.8 Other retention of urine; S80.211A Abrasion, right knee, initial encounter; S80.811A Abrasion, right lower leg, initial encounter; Z20.822 Contact with and (suspected) exposure to COVID-19
CPT/HCPCS: 36415; 71045; 73552; 73560; 73590; 73700; 80048; 80053; 82607; 82746; 83036; 83540; 83735; 84443; 84466; 85025; 85610; 86850; 86900; 86901; 87635; 93005; 96374; 96375; 97162; 97166; 97530; 97535; 99285; A9270; J0690; J1170; J1650; J2765; J2916; J3370; J3490; J7120

== ENCOUNTER 2023-01-26 08:00 | Outpatient (CLI) | payer MEDICARE, OTHER ==
--- NOTE | 2023-01-26 14:07 | XRAY Report ---
PROCEDURE: Femur RT INDICATIONS: RIGHT FEMUR ORIF TECHNIQUE: 2 views of the femur were acquired. COMPARISON: 01/17/2023 FINDINGS: Bones: The patient is post fixation of the previously demonstrated comminuted distal femur fracture with placement of an intramedullary rick and interlocking screws. Hardware appears intact. Fracture al ignment appears improved compared to the prereduction radiographs. Soft tissues: Skin pancho are present about the knee. IMPRESSION: Postsurgical changes from femur fracture fixation. Reviewed by: Ryan Yuan MD on 01/26/2023 2:05 PM PDT Approved by: Ryan Yuan MD on 01/26/2023 2:05 PM PDT Station ID: [id number]
== END 2023-01-26 23:59 | disposition home or self-care (01) ==
LOC: DI.WOS 08:00
PROVIDERS: ATTEND Orthopaedic Surgery
DX: S72.451D Displaced supracondylar fracture without intracondylar extension of lower end of right femur, subsequent encounter for closed fracture with routine healing (principal)

== ENCOUNTER 2023-03-09 08:00 | Outpatient (CLI) | payer OTHER ==
--- NOTE | 2023-03-09 12:09 | XRAY Report ---
PROCEDURE: Femur RT INDICATIONS: RIGHT FEMUR ORIF TECHNIQUE: 2 views of the femur were acquired. COMPARISON: Right femur radiographs 02/13/2023 FINDINGS: Bones: Postsurgical changes again seen from distal femoral fracture fixation with an intramedullary nail with proximal and distal locking screws. Metallic hardware is intact. Mild progressive healing c hanges along the fracture with continued visualization of the lucent fracture line. Alignment is unch anged. Soft tissues: No suspicious soft tissue calcifications or masses. IMPRESSION: Postsurgical changes again seen from distal femoral fracture fixation with mild progressive healing c hanges. Reviewed by: Ryan Ruano MD on 03/09/2023 12:08 PM PDT Approved by: Ryan Ruano MD on 03/09/2023 12:08 PM PDT Station ID: [id number]
== END 2023-03-09 23:59 | disposition home or self-care (01) ==
LOC: DI.WOS 08:00
PROVIDERS: ATTEND Orthopaedic Surgery
DX: S72.451D Displaced supracondylar fracture without intracondylar extension of lower end of right femur, subsequent encounter for closed fracture with routine healing (principal)

== ENCOUNTER 2023-04-20 08:00 | Outpatient (CLI) | payer OTHER ==
--- NOTE | 2023-04-20 16:43 | XRAY Report ---
PROCEDURE: Femur RT INDICATIONS: RIGHT FEMUR ORIF TECHNIQUE: AP and lateral views of the femur were acquired. COMPARISON: 03/09/2023 FINDINGS: Bones: Continued interval progress in healing of an oblique distal shaft fracture of the femur. Frac ture lucency less well seen. Expected appearance of orthopedic fixation. No evidence of hardware fail ure or loosening. Soft tissues: No suspicious soft tissue calcifications or masses. IMPRESSION: Expected appearance of orthopedic hardware, interval progress in healing. Reviewed by: James Tirado MD on 04/20/2023 4:41 PM PDT Approved by: James Tirado MD on 04/20/2023 4:41 PM PDT Station ID: [id number]
== END 2023-04-20 23:59 | disposition home or self-care (01) ==
LOC: DI.WOS 08:00
PROVIDERS: ATTEND Orthopaedic Surgery
DX: S72.451D Displaced supracondylar fracture without intracondylar extension of lower end of right femur, subsequent encounter for closed fracture with routine healing (principal)

== ENCOUNTER 2023-06-01 08:00 | Outpatient (CLI) | payer OTHER ==
--- NOTE | 2023-06-01 14:17 | XRAY Report ---
PROCEDURE: Knee 2 View RT INDICATIONS: RIGHT FEMUR ORIF TECHNIQUE: 2 views of the right knee(s) were acquired. COMPARISON: 01/17/2023, 04/20/2023 FINDINGS: Bones: Healing distal femur fracture. Partially seen intramedullary rick and interlocking screws. Mild knee degenerative changes and patellar enthesopathy. A bone fragment adjacent to the lateral portion of the distal femur seems more prominent than prior, either due to projection or heterotopic ossific ation. Soft tissues: Small knee joint effusion. IMPRESSION: Healing distal femur fracture and postsurgical changes. A bone fragment adjacent to the lateral portion of the distal femur seems more prominent than prior, possibly due to projectional differences or heterotopic ossification. Reviewed by: Peter Cuenca MD on 06/01/2023 2:16 PM PDT Approved by: Peter Cuenca MD on 06/01/2023 2:16 PM PDT Station ID: [id number]
== END 2023-06-01 23:59 | disposition home or self-care (01) ==
LOC: DI.WOS 08:00
PROVIDERS: ATTEND Orthopaedic Surgery
DX: S72.451D Displaced supracondylar fracture without intracondylar extension of lower end of right femur, subsequent encounter for closed fracture with routine healing (principal)